=== PATIENT | female | born 1995 | race Caucasian/White ===

== ENCOUNTER 2016-10-30 04:51 | Emergency (ER) | payer MEDICAID ==
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
== END 2016-10-30 05:38 | disposition home or self-care (01) ==
LOC: VM.ED 04:51
DX: S01.81XA Laceration without foreign body of other part of head, initial encounter (principal); W22.8XXA Striking against or struck by other objects, initial encounter
CPT/HCPCS: 12013; 99283

== ENCOUNTER 2018-12-26 12:10 | Inpatient (IN) | payer MEDICAID ==
[2018-12-26] MEDS ORDERED: Sodium Chloride 0.9% 10 ML Syringe FLUSH PRN (12:20)
[2018-12-26] MEDS ORDERED: Ondansetron 4 MG/2 ML SDV IVPUSH ONE (12:22)
[2018-12-26] MEDS ORDERED: LORazepam 2 MG/ML SDV IVPUSH ONE ×2 (12:23→13:54)
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
[2018-12-26] MEDS: cloNIDine 0.1 MG Tab PO ONE ×2 (13:03→13:55)
[2018-12-26] MEDS: Lactated Ringers 1,000 ML IV ONE ×2 (13:03→15:14)
[2018-12-26 13:38] LABS: ANION GAP 21.7 mmol/L (10-20); CHLORIDE,CL 93 mmol/L (54-184); SODIUM,NA 141 mmol/L (69-191)
[2018-12-26 16:21] LABS: BARBITURATE SCREEN,URINE NEGATIVE (NEGATIVE); BENZODIAZEPINES SCREEN,URINE NEGATIVE (NEGATIVE); EDDP,URINE SCREEN NEGATIVE (NEGATIVE)
[2018-12-26 16:22] LABS: METHAMPHETAMINE SCREEN, URINE POSITIVE (NEGATIVE); TCA SCREEN,URINE NEGATIVE (NEGATIVE); THC SCREEN,URINE 50 NG/ML NEGATIVE (NEGATIVE)
[2018-12-26] MEDS: Sodium Chloride 0.9% 1,000 ML IV SCH ×2 (16:53→23:47)
--- NOTE | 2018-12-26 17:52 | CR ---
[id number] RAD/RAD Chest PA or AP 1V EXAM: SINGLE VIEW CHEST. INDICATION: ELEVATED LACTIC ACID COMPARISON: CORRELATION IS MADE WITH THE EXAM OF JANUARY 04, 2018 FINDINGS: The lungs are clear but hyperaerated The cardiomediastinal contour is stable IMPRESSION: QUESTION OF AIRWAY DISEASE Antony Villasenor MD 12/26/18 0461 Thank you for allowing us to participate in the care of your patient.
[2018-12-26] MEDS: LORazepam 1 MG Tab PO PRN (22:00)
[2018-12-27] MEDS: Sodium Chloride 0.9% 1,000 ML IV SCH ×2 (03:33→07:41)
[2018-12-27 08:13] LABS: CHLORIDE,CL 103 mmol/L (54-184); SODIUM,NA 141 mmol/L (69-191)
[2018-12-27 08:14] LABS: ANION GAP 11.3 mmol/L (10-20)
[2018-12-27] MEDS ORDERED: Potassium Chloride 10 MEQ Tab.ER PO ONE (08:52)
[2018-12-27] MEDS ORDERED: Ondansetron 4 MG Tab.DIS PO PRN (10:37)
[2018-12-27] MEDS ORDERED: Ondansetron 4 MG/2 ML SDV IVPUSH PRN (10:37)
--- NOTE | 2018-12-27 10:50 | PCM.PN ---
- General Info Date of Service: 12/27/18 Admission Dx/Problem (Free Text): 23 yo admitted yesterday with opioid withdrawl did get IV ativan and IV fluids as she was very dehydrated. C.O.W.S score was moderate on admit but today only mild. Last dose of oral ativan was around 10 pm she is sleeping comfortably now getting up just to urinate. Did open her eyes for the eye exam and mumbled no when asked about torri. Last use was about 6 days ago now. Had an admit a couple months ago for overdose. She is tolerating clear liquids hasn't vomited now since last night. WBC still elevated but no source of infection found. Functional Status: Reports: Pain Controlled - Review of Systems General: Reports: No Symptoms Pulmonary: Reports: No Symptoms Cardiovascular: Reports: No Symptoms Skin: Reports: No Symptoms Neurological: Denies: Confusion (answering questions appropriate per the nurse when she wants to) - Patient Data Vitals - Most Recent: Last Vital Signs Temp 98.5 F 12/27/18 10:00 Pulse 72 12/27/18 10:00 Resp 16 12/27/18 10:00 BP 103/52 L 12/27/18 10:00 Pulse Ox 93 L 12/27/18 10:00 Weight - Most Recent: 52.163 kg I&O - Last 24 Hours: Intake & Output 12/26/18 12/27/18 12/27/18 22:59 06:59 14:59 Intake Total 150 4009 400 Output Total 200 400 600 Balance -50 3609 -200 Lab Results Last 24 Hours: Laboratory Results - last 24 hr 12/26/18 12/26/18 12/26/18 Range/Units 13:02 13:02 13:02 WBC 15.2 H (4.0-10.0) x10^3/uL RBC 5.76 H (4.00-5.50) x10^6/uL Hgb 17.1 H (12.0-16.0) g/dL Hct 48.9 H (33.0-47.0) % MCV 84.9 (78.0-93.0) fL MCH 29.7 (26.0-32.0) pg MCHC 35.0 (32.0-36.0) g/dL RDW Coeff of Zachary 14.7 (10.0-15.0) % Plt Count 576 H (130-400) x10^3/uL Neut % (Auto) 76.6 (50.0-80.0) % Lymph % (Auto) 19.6 L (25.0-50.0) % [place] % (Auto) 3.6 (2.0-11.0) % Eos % (Auto) 0.1 (0.0-4.0) % Baso % (Auto) 0.1 L (0.2-1.2) % PT 10.4 (10.0-12.8) SEC INR 0.9 L (2.0-3.5) Sodium 141 (69-191) mmol/L Potassium 3.7 (1.5-9.9) mmol/L Chloride 93 L (54-184) mmol/L Carbon Dioxide 30 (21-32) mmol/L Anion Gap 21.7 H (10-20) mmol/L BUN 49 H (7-18) mg/dL Creatinine 2.4 H (0.55-1.02) mg/dL Est Cr Clr Drug Dosing TNP Estimated GFR (MDRD) 25 Glucose 164 H (74-106) mg/dL Lactic Acid (0.4-2.0) mmol/L Calcium 10.3 H (8.5-10.1) mg/dL Corrected Calcium 10.30 H (8.5-10.1) mg/dL Phosphorus 8.9 H (2.6-4.7) mg/dL Magnesium 2.7 H (1.8-2.4) mg/dL Total Bilirubin 0.6 (0.2-1.0) mg/dL AST 31 (15-37) U/L ALT 42 (14-59) U/L Alkaline Phosphatase 222 H (46-116) U/L Total Protein 11.0 H (6.4-8.2) g/dL Albumin 4.0 (3.4-5.0) g/dL Globulin 7.0 Albumin/Globulin Ratio 0.57 TSH, Ultra Sensitive 0.300 L (0.358-3.74) uIU/mL Urine Color (YELLOW) Urine Appearance (CLEAR) Urine pH (5.0-8.0) Ur Specific [place] Urine Protein (NEGATIVE) mg/dL Urine Glucose (UA) (NEGATIVE) mg/dL Urine Ketones (NEGATIVE) mg/dL Urine Occult Blood (NEGATIVE) Urine Nitrite (NEGATIVE) Urine Bilirubin (NEGATIVE) Urine Urobilinogen (0.2) EU/dL Ur Leukocyte Esterase (NEGATIVE) Urine RBC (NOT SEEN) /HPF Urine WBC (NOT SEEN) /HPF Ur Squamous Epith Cells (NEGATIVE) /HPF Amorphous Sediment Urine Bacteria (NEGATIVE) /HPF Hyaline Casts (NEGATIVE) /HPF Granular Casts (NEGATIVE) /HPF Urine Mucus (NEGATIVE) /LPF Urine HCG, Qual (NEGATIVE) Urine Opiates Screen (NEGATIVE) Ur Buprenorphine Scrn (NEGATIVE) Ur Oxycodone Screen (NEGATIVE) Ur EDDP (Meth Metab) (NEGATIVE) Urine Methadone Screen (NEGATIVE) Ur Barbiturates Screen (NEGATIVE) Ur Tricyclics Screen (NEGATIVE) Ur Phencyclidine Scrn (NEGATIVE) Ur Amphetamine Screen (NEGATIVE) U Methamphetamines Scrn (NEGATIVE) Urine MDMA Screen (NEGATIVE) U Benzodiazepines Scrn (NEGATIVE) U Cocaine Metab Screen (NEGATIVE) U Marijuana (THC) Screen (NEGATIVE) Ethyl Alcohol < 3 (0-3) mg/dL 12/26/18 12/26/18 12/26/18 Range/Units 13:02 16:10 16:10 WBC (4.0-10.0) x10^3/uL RBC (4.00-5.50) x10^6/uL Hgb (12.0-16.0) g/dL Hct (33.0-47.0) % MCV (78.0-93.0) fL MCH (26.0-32.0) pg MCHC (32.0-36.0) g/dL RDW Coeff of Zachary (10.0-15.0) % Plt Count (130-400) x10^3/uL Neut % (Auto) (50.0-80.0) % Lymph % (Auto) (25.0-50.0) % [place] % (Auto) (2.0-11.0) % Eos % (Auto) (0.0-4.0) % Baso % (Auto) (0.2-1.2) % PT (10.0-12.8) SEC INR (2.0-3.5) Sodium (69-191) mmol/L Potassium (1.5-9.9) mmol/L Chloride (54-184) mmol/L Carbon Dioxide (21-32) mmol/L Anion Gap (10-20) mmol/L BUN (7-18) mg/dL Creatinine (0.55-1.02) mg/dL Est Cr Clr Drug Dosing Estimated GFR (MDRD) Glucose (74-106) mg/dL Lactic Acid 4.6 H* (0.4-2.0) mmol/L Calcium (8.5-10.1) mg/dL Corrected Calcium (8.5-10.1) mg/dL Phosphorus (2.6-4.7) mg/dL Magnesium (1.8-2.4) mg/dL Total Bilirubin (0.2-1.0) mg/dL AST (15-37) U/L ALT (14-59) U/L Alkaline Phosphatase (46-116) U/L Total Protein (6.4-8.2) g/dL Albumin (3.4-5.0) g/dL Globulin Albumin/Globulin Ratio TSH, Ultra Sensitive (0.358-3.74) uIU/mL Urine Color Dark yellow H (YELLOW) Urine Appearance Turbid H (CLEAR) Urine pH 5.0 (5.0-8.0) Ur Specific [place] >=1.030 Urine Protein 30 H (NEGATIVE) mg/dL Urine Glucose (UA) Negative (NEGATIVE) mg/dL Urine Ketones Negative (NEGATIVE) mg/dL Urine Occult Blood Moderate H (NEGATIVE) Urine Nitrite Negative (NEGATIVE) Urine Bilirubin Small H (NEGATIVE) Urine Urobilinogen 0.2 (0.2) EU/dL Ur Leukocyte Esterase Negative (NEGATIVE) Urine RBC 5-10 H (NOT SEEN) /HPF Urine WBC 0-5 (NOT SEEN) /HPF Ur Squamous Epith Cells Few H (NEGATIVE) /HPF Amorphous Sediment Moderate Urine Bacteria Moderate H (NEGATIVE) /HPF Hyaline Casts Many H (NEGATIVE) /HPF Granular Casts Few H (NEGATIVE) /HPF Urine Mucus Moderate H (NEGATIVE) /LPF Urine HCG, Qual (NEGATIVE) Urine Opiates Screen Negative (NEGATIVE) Ur Buprenorphine Scrn Negative (NEGATIVE) Ur Oxycodone Screen Negative (NEGATIVE) Ur EDDP (Meth Metab) Negative (NEGATIVE) Urine Methadone Screen Negative (NEGATIVE) Ur Barbiturates Screen Negative (NEGATIVE) Ur Tricyclics Screen Negative (NEGATIVE) Ur Phencyclidine Scrn Negative (NEGATIVE) Ur Amphetamine Screen Positive H (NEGATIVE) U Methamphetamines Scrn Positive H (NEGATIVE) Urine MDMA Screen Negative (NEGATIVE) U Benzodiazepines Scrn Negative (NEGATIVE) U Cocaine Metab Screen Negative (NEGATIVE) U Marijuana (THC) Screen Negative (NEGATIVE) Ethyl Alcohol (0-3) mg/dL 12/26/18 12/27/18 12/27/18 Range/Units 16:10 07:45 07:45 WBC 16.1 H (4.0-10.0) x10^3/uL RBC 4.08 (4.00-5.50) x10^6/uL Hgb 12.0 D (12.0-16.0) g/dL Hct 35.7 (33.0-47.0) % MCV 87.5 (78.0-93.0) fL MCH 29.4 (26.0-32.0) pg MCHC 33.6 (32.0-36.0) g/dL RDW Coeff of Zachary 14.1 (10.0-15.0) % Plt Count 395 D (130-400) x10^3/uL Neut % (Auto) 63.0 (50.0-80.0) % Lymph % (Auto) 29.1 (25.0-50.0) % [place] % (Auto) 7.1 (2.0-11.0) % Eos % (Auto) 0.6 (0.0-4.0) % Baso % (Auto) 0.2 (0.2-1.2) % PT (10.0-12.8) SEC INR (2.0-3.5) Sodium 141 (69-191) mmol/L Potassium 3.3 L (1.5-9.9) mmol/L Chloride 103 (54-184) mmol/L Carbon Dioxide 30 (21-32) mmol/L Anion Gap 11.3 (10-20) mmol/L BUN 24 H D (7-18) mg/dL Creatinine 1.0 D (0.55-1.02) mg/dL Est Cr Clr Drug Dosing 72.67 Estimated GFR (MDRD) > 60 Glucose 89 (74-106) mg/dL Lactic Acid (0.4-2.0) mmol/L Calcium 8.0 L D (8.5-10.1) mg/dL Corrected Calcium 9.20 (8.5-10.1) mg/dL Phosphorus (2.6-4.7) mg/dL Magnesium (1.8-2.4) mg/dL Total Bilirubin 0.8 (0.2-1.0) mg/dL AST 56 H (15-37) U/L ALT 51 (14-59) U/L Alkaline Phosphatase 170 H (46-116) U/L Total Protein 6.6 (6.4-8.2) g/dL Albumin 2.5 L (3.4-5.0) g/dL Globulin 4.1 Albumin/Globulin Ratio 0.61 TSH, Ultra Sensitive (0.358-3.74) uIU/mL Urine Color (YELLOW) Urine Appearance (CLEAR) Urine pH (5.0-8.0) Ur Specific [place] Urine Protein (NEGATIVE) mg/dL Urine Glucose (UA) (NEGATIVE) mg/dL Urine Ketones (NEGATIVE) mg/dL Urine Occult Blood (NEGATIVE) Urine Nitrite (NEGATIVE) Urine Bilirubin (NEGATIVE) Urine Urobilinogen (0.2) EU/dL Ur Leukocyte Esterase (NEGATIVE) Urine RBC (NOT SEEN) /HPF Urine WBC (NOT SEEN) /HPF Ur Squamous Epith Cells (NEGATIVE) /HPF Amorphous Sediment Urine Bacteria (NEGATIVE) /HPF Hyaline Casts (NEGATIVE) /HPF Granular Casts (NEGATIVE) /HPF Urine Mucus (NEGATIVE) /LPF Urine HCG, Qual Negative (NEGATIVE) Urine Opiates Screen (NEGATIVE) Ur Buprenorphine Scrn (NEGATIVE) Ur Oxycodone Screen (NEGATIVE) Ur EDDP (Meth Metab) (NEGATIVE) Urine Methadone Screen (NEGATIVE) Ur Barbiturates Screen (NEGATIVE) Ur Tricyclics Screen (NEGATIVE) Ur Phencyclidine Scrn (NEGATIVE) Ur Amphetamine Screen (NEGATIVE) U Methamphetamines Scrn (NEGATIVE) Urine MDMA Screen (NEGATIVE) U Benzodiazepines Scrn (NEGATIVE) U Cocaine Metab Screen (NEGATIVE) U Marijuana (THC) Screen (NEGATIVE) Ethyl Alcohol (0-3) mg/dL 12/27/18 Range/Units 07:45 WBC (4.0-10.0) x10^3/uL RBC (4.00-5.50) x10^6/uL Hgb (12.0-16.0) g/dL Hct (33.0-47.0) % MCV (78.0-93.0) fL MCH (26.0-32.0) pg MCHC (32.0-36.0) g/dL RDW Coeff of Zachary (10.0-15.0) % Plt Count (130-400) x10^3/uL Neut % (Auto) (50.0-80.0) % Lymph % (Auto) (25.0-50.0) % [place] % (Auto) (2.0-11.0) % Eos % (Auto) (0.0-4.0) % Baso % (Auto) (0.2-1.2) % PT (10.0-12.8) SEC INR (2.0-3.5) Sodium (69-191) mmol/L Potassium (1.5-9.9) mmol/L Chloride (54-184) mmol/L Carbon Dioxide (21-32) mmol/L Anion Gap (10-20) mmol/L BUN (7-18) mg/dL Creatinine (0.55-1.02) mg/dL Est Cr Clr Drug Dosing Estimated GFR (MDRD) Glucose (74-106) mg/dL Lactic Acid 1.4 (0.4-2.0) mmol/L Calcium (8.5-10.1) mg/dL Corrected Calcium (8.5-10.1) mg/dL Phosphorus (2.6-4.7) mg/dL Magnesium (1.8-2.4) mg/dL Total Bilirubin (0.2-1.0) mg/dL AST (15-37) U/L ALT (14-59) U/L Alkaline Phosphatase (46-116) U/L Total Protein (6.4-8.2) g/dL Albumin (3.4-5.0) g/dL Globulin Albumin/Globulin Ratio TSH, Ultra Sensitive (0.358-3.74) uIU/mL Urine Color (YELLOW) Urine Appearance (CLEAR) Urine pH (5.0-8.0) Ur Specific [place] Urine Protein (NEGATIVE) mg/dL Urine Glucose (UA) (NEGATIVE) mg/dL Urine Ketones (NEGATIVE) mg/dL Urine Occult Blood (NEGATIVE) Urine Nitrite (NEGATIVE) Urine Bilirubin (NEGATIVE) Urine Urobilinogen (0.2) EU/dL Ur Leukocyte Esterase (NEGATIVE) Urine RBC (NOT SEEN) /HPF Urine WBC (NOT SEEN) /HPF Ur Squamous Epith Cells (NEGATIVE) /HPF Amorphous Sediment Urine Bacteria (NEGATIVE) /HPF Hyaline Casts (NEGATIVE) /HPF Granular Casts (NEGATIVE) /HPF Urine Mucus (NEGATIVE) /LPF Urine HCG, Qual (NEGATIVE) Urine Opiates Screen (NEGATIVE) Ur Buprenorphine Scrn (NEGATIVE) Ur Oxycodone Screen (NEGATIVE) Ur EDDP (Meth Metab) (NEGATIVE) Urine Methadone Screen (NEGATIVE) Ur Barbiturates Screen (NEGATIVE) Ur Tricyclics Screen (NEGATIVE) Ur Phencyclidine Scrn (NEGATIVE) Ur Amphetamine Screen (NEGATIVE) U Methamphetamines Scrn (NEGATIVE) Urine MDMA Screen (NEGATIVE) U Benzodiazepines Scrn (NEGATIVE) U Cocaine Metab Screen (NEGATIVE) U Marijuana (THC) Screen (NEGATIVE) Ethyl Alcohol (0-3) mg/dL Bashir Results Last 24 Hours: Microbiology 12/26/18 18:04 Anaerobic Blood Culture - Final Blood - Venous - Lab Draw 12/26/18 17:59 Anaerobic Blood Culture - Final Blood - Venous Med Orders - Current: Current Medications Diphenhydramine HCl (Benadryl) 25 mg PO QID PRN PRN Reason: Anxiety Lorazepam (Ativan) 1 mg PO Q3HR PRN PRN Reason: Agitation Last Admin: 12/26/18 22:00 Dose: 1 mg Ondansetron HCl (Zofran Odt) 4 mg PO Q4H PRN PRN Reason: Nausea/Vomiting Ondansetron HCl (Zofran) 4 mg IVPUSH Q8H PRN PRN Reason: Nausea Sodium Chloride (Saline Flush) 10 ml FLUSH ASDIRECTED PRN PRN Reason: Keep Vein Open Discontinued Medications Clonidine HCl (Catapres) 0.1 mg PO ONETIME ONE Stop: 12/26/18 12:25 Last Admin: 12/26/18 13:55 Dose: Not Given Lactated Ringer's (Ringers, Lactated) 1,000 mls @ 1,000 mls/hr IV ONETIME ONE Stop: 12/26/18 13:22 Last Admin: 12/26/18 15:14 Dose: 1,000 mls/hr Sodium Chloride (Normal Saline) 1,000 mls @ 250 mls/hr IV ASDIRECTED TANYA Last Admin: 12/27/18 07:41 Dose: 250 mls/hr Lorazepam (Ativan) 1 mg IVPUSH STAT ONE Stop: 12/26/18 12:24 Last Admin: 12/26/18 13:01 Dose: 1 mg Lorazepam (Ativan) 1 mg IVPUSH STAT ONE Stop: 12/26/18 13:55 Last Admin: 12/26/18 13:59 Dose: 1 mg Ondansetron HCl (Zofran) 4 mg IVPUSH ONETIME ONE Stop: 12/26/18 12:23 Last Admin: 12/26/18 13:03 Dose: 4 mg Potassium Chloride (Klor-Con 10) 20 meq PO ONETIME ONE Stop: 12/27/18 08:53 Last Admin: 12/27/18 09:53 Dose: 20 meq - Exam General: Obtunded HEENT: Pupils Equal (4 mm), Pupils Reactive Neck: Supple, Trachea Midline Lungs: Clear to Auscultation, Normal Respiratory Effort Cardiovascular: Regular Rate, Regular Rhythm GI/Abdominal Exam: Normal Bowel Sounds, Soft, Non-Tender Extremities: Normal Inspection, No Pedal Edema Skin: Warm, Dry Neurological: No New Focal Deficit Psy/Mental Status: Other (sleepy) - Problem List & Annotations (1) Opiate withdrawal SNOMED Code(s): 30330152 Code(s): F11.23 - OPIOID DEPENDENCE WITH WITHDRAWAL Status: Acute Current Visit: Yes - Problem List Review Problem List Initiated/Reviewed/Updated: Yes - My Orders Last 24 Hours: My Active Orders 12/27/18 10:36 diphenhydrAMINE [Benadryl] 25 mg PO QID PRN 12/27/18 10:37 Ondansetron [Zofran ODT] 4 mg PO Q4H PRN Ondansetron [Zofran] 4 mg IVPUSH Q8H PRN 12/28/18 05:15 CBC WITH AUTO DIFF [HEME] AM COMPREHENSIVE METABOLIC PN,CMP [CHEM] AM 12/28/18 07:00 MG [MAGNESIUM] [CHEM] Routine - Assessment Assessment:: 1. Renal failure due to dehydration resolved 2. Opioid withdrawl seems to have improved 3. Opioid addiction 4. Hypokalemia will replace orally 5. Leukocytosis no source of infection found, she is not on ABX Plan: Stop fluid Replace potassium Discuss with social studies teacher the possibility of going to direct treatment tomorrow Repeat labs in AM prn Benadryl if needed for anxiety nausea meds available Advance diet as tolerated - Plan Plan:: See above
--- NOTE | 2018-12-27 11:49 | CR ---
[id number] RAD/RAD Chest PA And Lateral EXAM: RAD Chest PA And Lateral CLINICAL DATA: ELEVATED WHITE BLOOD CELL COUNT ELEVATED LACTIC ACID COMPARISON: CORRELATION IS MADE WITH YESTERDAY'S EXAM FINDINGS: There is a minimal infiltrate at the left lung base developing. The lungs otherwise are clear but hyperaerated IMPRESSION: EARLY INFILTRATE LEFT LUNG BASE Antony Villasenor MD 12/27/18 1148 Thank you for allowing us to participate in the care of your patient.
[2018-12-27] MEDS: Albuterol/Ipratropium 3.0-0.5 MG/3 ML Neb Soln NEB PRN ×2 (12:45→23:18)
[2018-12-27] MEDS: cefTRIAXone 1 GM Vial IVPUSH SCH (12:45)
[2018-12-27] MEDS: Benzonatate 100 MG Cap PO PRN ×2 (12:48→23:19)
[2018-12-27] MEDS: diphenhydrAMINE 12.5 MG/5 ML Liquid 5 ML UD Cup PO PRN (23:18)
[2018-12-28] MEDS: LORazepam 1 MG Tab PO PRN (05:22)
[2018-12-28] MEDS: Benzonatate 100 MG Cap PO PRN (08:00)
[2018-12-28 08:02] LABS: ANION GAP 13.6 mmol/L (10-20); CHLORIDE,CL 101 mmol/L (54-184); SODIUM,NA 141 mmol/L (69-191)
[2018-12-28] MEDS: diphenhydrAMINE 12.5 MG/5 ML Liquid 5 ML UD Cup PO PRN (08:02)
[2018-12-28] MEDS: cefTRIAXone 1 GM Vial IVPUSH SCH (08:05)
[2018-12-28] MEDS ORDERED: Metoclopramide 10 MG/2 ML SDV IVPUSH PRN (08:23)
[2018-12-28] MEDS ORDERED: Ondansetron 4 MG/2 ML SDV IVPUSH PRN (08:23)
[2018-12-28] MEDS: Nicotine 14 MG/24 Hr Patch TRDERM SCH (09:28)
--- NOTE | 2018-12-28 13:26 | PN ---
Progress Note for ROME BAUTISTA Date: 12/28/2018 Room #: VM.215 SUBJECTIVE: This is hospital day #3 on a 23-year-old, initially admitted with observation for opioid withdrawal. The patient had a good day yesterday, but then unfortunately during the night started vomiting. She has been vomiting this morning, not really able to keep anything down. She had been off IV fluids. She otherwise was found to have pneumonia yesterday and started on IV Rocephin. She has been afebrile. She is not requiring any oxygen. She has been coughing quite a bit. She states the nebulizers help. She does not even recall seeing me yesterday when she came in. She had expressed some desire that she wished she was . She is no longer feeling like that. I suspect this is due to her severe withdrawal symptoms. She states she has never withdrawn this bad before. Last use was about a week ago. She has been to treatment previously and was on Suboxone, but did not have a vehicle and was not able to follow up appropriately to get her treatment in [place]. She has also been in [facility] for like 28 days before. OBJECTIVE: Vital Signs: Her weight is 48.5 kg, temperature 99.3, pulse 73, blood pressure 105/53, respiratory rate 12, and O2 of 94% on room air. Mother is at bedside. HEART: The patient's heart has regular rate and rhythm. S1, S2 without murmur. CHEST: Lung sounds are clear to auscultation bilaterally without crackles or wheezes. ABDOMEN: Nontender. EXTREMITIES: Warm and dry. No edema. MENTAL STATUS: She is alert. She is orientated x3. MEDICATIONS: Lorazepam p.o. at 5 a.m. ASSESSMENT: 1. Ongoing nausea, vomiting, likely due to opioid withdrawal. Patient denies any methadone use. Symptoms should be getting better soon. We will go ahead and restart her fluid. She has already got Zofran. We will order some p.r.n. Reglan as well. 2. Renal failure due to dehydration. This has resolved, but given her poor oral intake and current symptoms, I am going to restart IV fluids. 3. Opioid withdrawal. We will continue to monitor. 4. Opioid addiction. The patient is interested in pursuing treatment. Customer Associate will see her. 5. Pneumonia, presumably due to vomiting from her withdrawals. She was getting IV Rocephin now day #2. Infiltrate is in the left lung base. We will continue with the same. Repeat x-ray if needed. 6. Elevated liver enzymes. These are improving. 7. Polysubstance abuse. She also admits to using methamphetamines. 8. Leukocytosis due to pneumonia, improving. PLAN: At this point, the patient is upgraded to acute cares. We will restart IV fluids. We will get lab work tomorrow. We will continue IV Rocephin. Sputum culture was also ordered. We will have her on a diet as tolerated. She prefers Jell-O. We can go back to clear liquids also if needed. MKA: 12/28/2018 12:59:14 MODL: 12/28/2018 13:17:27 /[id number] [email or web address]
[2018-12-29] MEDS: Sodium Chloride 0.9% 500 ML IV SCH ×2 (00:20→04:50)
[2018-12-29] MEDS: LORazepam 1 MG Tab PO PRN (04:15)
[2018-12-29] MEDS: diphenhydrAMINE 12.5 MG/5 ML Liquid 5 ML UD Cup PO PRN (04:16)
[2018-12-29 07:25] LABS: CHLORIDE,CL 101 mmol/L (54-184); SODIUM,NA 139 mmol/L (69-191)
[2018-12-29 07:27] LABS: ANION GAP 13.6 mmol/L (10-20)
[2018-12-29] MEDS: cefTRIAXone 1 GM Vial IVPUSH SCH (07:35)
[2018-12-29] MEDS: Nicotine 14 MG/24 Hr Patch TRDERM SCH (07:35)
[2018-12-29] MEDS ORDERED: Cefuroxime 250 MG Tab PO SCH (09:30)
--- NOTE | 2018-12-29 14:19 | PCM.DCSUM1 ---
Discharge Summary - Hospital Course Free Text/Narrative:: Patient presented to the ER on 12/26 with being out of her IV heroin for 5 days with vomiting and not voiding. She was very dehydrated she was given ativan and IV fluids and admitted. Her withdrawl symptoms were moderate but mild by the next day however she had increased coughing so a chest x-ray was repeated showing pneumonia so she was started on IV rocephin on 12/27. She did get nebs which helped but hasn't used in 24 hours. She does smoke so was given the nicotine patch. She slept a lot. She got IV fluids those were stopped and she was on a clear liquid diet advancing to soft food and jello. She continued on observation but on the morning of 12/28 she was again vomiting despite zofran so IV reglan was ordered. She then vomited later in the day and fluids were restarted but overnight she had no further vomiting and was interested in going to treatment but really wanted to go home with her mother because she couldn't sleep here. Urine drug screen was positive for methamphetamines also. She has been intubated with overdose in the past at [facility]. Initially she did state she wanted to but that was when she was acutely withdrawing and no does not express any suicidal thoughts. Lung exam was improved with just mild wheezing she was afebrile and not requiring oxygen therefore discharge was arranged to the [facility] with Dr. Ignacio accepting. - Discharge Data Discharge Date: 12/29/18 Discharge Disposition: DC/Tfer to Psych Hosp/Unit [facility] Condition: Good - Referral to Home Health Primary Care Physician: Karma Reynolds, DO - Discharge Diagnosis/Problem(s) (1) Pneumonia SNOMED Code(s): 605737209 ICD Code: J18.9 - PNEUMONIA, UNSPECIFIED ORGANISM Status: Acute Current Visit: Yes Qualifiers: Pneumonia type: due to unspecified organism Laterality: left Lung location: lower lobe of lung Qualified Code(s): J18.1 - Lobar pneumonia, unspecified organism (2) Renal failure SNOMED Code(s): 76036440 ICD Code: N19 - UNSPECIFIED KIDNEY FAILURE Status: Resolved Priority: High Current Visit: Yes Qualifiers: Renal failure chronicity: acute Acute renal failure type: unspecified Qualified Code(s): N17.9 - Acute kidney failure, unspecified (3) Dehydration SNOMED Code(s): 39196018 ICD Code: E86.0 - DEHYDRATION Status: Resolved Priority: High Current Visit: Yes (4) Methamphetamine addiction SNOMED Code(s): 931135473, 904448704 ICD Code: F15.20 - OTHER STIMULANT DEPENDENCE, UNCOMPLICATED Status: Chronic Priority: High Current Visit: Yes (5) Opiate withdrawal SNOMED Code(s): 70322616 ICD Code: F11.23 - OPIOID DEPENDENCE WITH WITHDRAWAL Status: Acute Current Visit: Yes - Patient Summary/Data Consults: Consultations 12/26/18 15:21 Consult to Case Management/Documentation Billing Clerk [CONS] Routine - Patient Instructions Diet: Regular Diet as Tolerated Activity: As Tolerated Notify Provider of: Fever, Increased Pain, Drainage, Nausea and/or Vomiting - Discharge Plan Prescriptions/Med Rec: Cefuroxime [Ceftin] 250 mg PO BID #6 tablet Home Medications: Home Meds Cefuroxime [Ceftin] 250 mg PO BID #6 tablet 12/29/18 [Rx] LORazepam [Ativan] 1 mg PO Q3HR PRN tablet 12/29/18 [Rx] Nicotine [Habitrol] 14 mg TRDERM DAILY patch 12/29/18 [Rx] Ondansetron [Zofran ODT] 4 mg PO Q4H PRN tab.dis 12/29/18 [Rx] diphenhydrAMINE [Benadryl] 25 mg PO QID PRN cup 12/29/18 [Rx] Forms: ED Department Discharge Referrals: Harrison Watkins PA-C [Ordering Only Provider] - - Discharge Summary/Plan Comment DC Time >30 min.: Yes Discharge Summary/Plan Comment: To the [facility] for further chemical dependency treatment. Will need Ceftin 250 BID x 3 days All lab work looked ok PRN nausea meds and ativan to be further decided by the [facility] - General Info Date of Service: 12/29/18 Functional Status: Reports: Pain Controlled - Review of Systems General: Reports: No Symptoms Pulmonary: Reports: No Symptoms Cardiovascular: Reports: No Symptoms Gastrointestinal: Reports: No Symptoms (she is having BM's) Musculoskeletal: Reports: No Symptoms Psychiatric: Reports: Other (trouble sleeping ). Denies: Confusion - Patient Data Vitals - Most Recent: Last Vital Signs Temp 96.8 F 12/29/18 10:00 Pulse 88 12/29/18 10:00 Resp 18 12/29/18 10:00 BP 105/65 12/29/18 10:00 Pulse Ox 93 L 12/29/18 10:00 Weight - Most Recent: 48.534 kg I&O - Last 24 hours: Intake & Output 12/28/18 12/29/18 12/29/18 22:59 06:59 14:59 Intake Total 1300 Output Total 400 Balance 900 Lab Results - Last 24 hrs: Laboratory Results - last 24 hr 12/29/18 12/29/18 12/29/18 Range/Units 07:05 07:05 07:05 WBC 10.4 H (4.0-10.0) x10^3/uL RBC 4.49 (4.00-5.50) x10^6/uL Hgb 13.2 (12.0-16.0) g/dL Hct 39.2 (33.0-47.0) % MCV 87.3 (78.0-93.0) fL MCH 29.4 (26.0-32.0) pg MCHC 33.7 (32.0-36.0) g/dL RDW Coeff of Zachary 13.5 (10.0-15.0) % Plt Count 403 H (130-400) x10^3/uL Neut % (Auto) 59.2 (50.0-80.0) % Lymph % (Auto) 29.1 (25.0-50.0) % Beauregard % (Auto) 7.1 (2.0-11.0) % Eos % (Auto) 4.4 H (0.0-4.0) % Baso % (Auto) 0.2 (0.2-1.2) % Sodium 139 (69-191) mmol/L Potassium 3.6 (1.5-9.9) mmol/L Chloride 101 (54-184) mmol/L Carbon Dioxide 28 (21-32) mmol/L Anion Gap 13.6 (10-20) mmol/L BUN 12 (7-18) mg/dL Creatinine 0.7 (0.55-1.02) mg/dL Est Cr Clr Drug Dosing 96.59 mL/min Estimated GFR (MDRD) > 60 Glucose 101 (74-106) mg/dL Calcium 8.8 (8.5-10.1) mg/dL Magnesium 2.0 (1.8-2.4) mg/dL ALVIN Results - Last 24 hrs: Microbiology 12/28/18 08:25 Gram Stain - Final Sputum - Expectorated Sputum Culture - Preliminary NORMAL RESPIRATORY RENAN 1 DAY 12/26/18 18:04 Aerobic Blood Culture - Preliminary Blood - Venous - Lab Draw NO GROWTH AFTER 2 DAYS Anaerobic Blood Culture - Final 12/26/18 17:59 Aerobic Blood Culture - Preliminary Blood - Venous NO GROWTH AFTER 2 DAYS Anaerobic Blood Culture - Final Med Orders - Current: Current Medications Albuterol/Ipratropium (Duoneb 3.0-0.5 Mg/3 Ml) 3 ml NEB Q4HRRT PRN PRN Reason: Cough Last Admin: 12/27/18 23:18 Dose: 3 ml Benzonatate (Tessalon Perles) 100 mg PO TID PRN PRN Reason: Cough Last Admin: 12/28/18 08:00 Dose: 100 mg Cefuroxime Axetil (Ceftin) 250 mg PO BID [facility] Last Admin: 12/29/18 09:38 Dose: 250 mg Diphenhydramine HCl (Benadryl) 25 mg PO QID PRN PRN Reason: Anxiety Last Admin: 12/29/18 04:16 Dose: 25 mg Lorazepam (Ativan) 1 mg PO Q3HR PRN PRN Reason: Agitation Last Admin: 12/29/18 04:15 Dose: 1 mg Metoclopramide HCl (Reglan) 5 mg IVPUSH Q4H PRN PRN Reason: Vomiting Last Admin: 12/28/18 12:01 Dose: 5 mg Nicotine (Habitrol) 14 mg TRDERM DAILY [facility] Last Admin: 12/29/18 07:35 Dose: 14 mg Ondansetron HCl (Zofran Odt) 4 mg PO Q4H PRN PRN Reason: Nausea/Vomiting Ondansetron HCl (Zofran) 4 mg IVPUSH Q6H PRN PRN Reason: Nausea Sodium Chloride (Saline Flush) 10 ml FLUSH ASDIRECTED PRN PRN Reason: Keep Vein Open Discontinued Medications Ceftriaxone Sodium (Rocephin) 1 gm IVPUSH DAILY [facility] Last Admin: 12/29/18 07:35 Dose: 1 gm Clonidine HCl (Catapres) 0.1 mg PO ONETIME ONE Stop: 12/26/18 12:25 Last Admin: 12/26/18 13:55 Dose: Not Given Lactated Ringer's (Ringers, Lactated) 1,000 mls @ 1,000 mls/hr IV ONETIME ONE Stop: 12/26/18 13:22 Last Admin: 12/26/18 15:14 Dose: 1,000 mls/hr Sodium Chloride (Normal Saline) 1,000 mls @ 250 mls/hr IV ASDIRECTED [facility] Last Admin: 12/27/18 07:41 Dose: 250 mls/hr Sodium Chloride (Normal Saline) 500 mls @ 100 mls/hr IV ASDIRECTED [facility] Last Admin: 12/29/18 04:50 Dose: 100 mls/hr Lorazepam (Ativan) 1 mg IVPUSH STAT ONE Stop: 12/26/18 12:24 Last Admin: 12/26/18 13:01 Dose: 1 mg Lorazepam (Ativan) 1 mg IVPUSH STAT ONE Stop: 12/26/18 13:55 Last Admin: 12/26/18 13:59 Dose: 1 mg Ondansetron HCl (Zofran) 4 mg IVPUSH ONETIME ONE Stop: 12/26/18 12:23 Last Admin: 12/26/18 13:03 Dose: 4 mg Ondansetron HCl (Zofran) 4 mg IVPUSH Q8H PRN PRN Reason: Nausea Last Admin: 12/28/18 03:24 Dose: 4 mg Potassium Chloride (Klor-Con 10) 20 meq PO ONETIME ONE Stop: 12/27/18 08:53 Last Admin: 12/27/18 09:53 Dose: 20 meq - Exam General: Reports: Alert, Oriented HEENT: Reports: Pupils Equal, Pupils Reactive Neck: Reports: Supple Lungs: Reports: Clear to Auscultation, Normal Respiratory Effort, Wheezing Cardiovascular: Reports: Regular Rate, Regular Rhythm GI/Abdominal Exam: Normal Bowel Sounds, Soft, Non-Tender Extremities: Normal Inspection Skin: Reports: Warm, Dry, Intact Psy/Mental Status: Reports: Alert, Normal Affect, Normal Mood
== END 2018-12-29 15:25 | DRG 896 ==
LOC: VM.ED 12:10 → EEVIPCON 14:54 → VM.MS 14:54 → OBSVTOIN 12-28 08:23
PROVIDERS: ADMIT Internal Medicine; ATTEND Internal Medicine
DX: F11.23 Opioid dependence with withdrawal (principal); J18.9 Pneumonia, unspecified organism; N17.9 Acute kidney failure, unspecified; F15.20 Other stimulant dependence, uncomplicated; R11.2 Nausea with vomiting, unspecified; R45.1 Restlessness and agitation; E86.0 Dehydration; E87.6 Hypokalemia; R74.8 Abnormal levels of other serum enzymes; F19.10 Other psychoactive substance abuse, uncomplicated; J45.909 Unspecified asthma, uncomplicated
CPT/HCPCS: 36415 ×3; 71045; 71046; 80053 ×3; 80305; 80320; 81001; 81025; 83605 ×2; 83735 ×2; 84100; 84443; 85025 ×3; 85610; 87040 ×2; 94640 ×2; 96361; 96374; 96376; 99285; A9270 ×8; J0696 ×2; J2060 ×2; J2405 ×2; J7030 ×4; J7120 ×2; 80048; 87070; 87205; 96375; G0378; G0480; J2765; J7040; J7620-GY

== ENCOUNTER 2019-05-17 16:01 | Emergency (ER) | payer MEDICAID ==
[2019-05-17] MEDS ORDERED: Sodium Chloride 0.9% 10 ML Syringe FLUSH PRN (16:09)
[2019-05-17] MEDS ORDERED: Albuterol/Ipratropium 3.0-0.5 MG/3 ML Neb Soln NEB ONE (16:11)
[2019-05-17] MEDS ORDERED: methylPREDNISolone Sodium Succinate 125 MG/2 ML SDV IVPUSH ONE (16:18)
[2019-05-17] MEDS ORDERED: Lactated Ringers 1,000 ML IV ONE (16:23)
[2019-05-17] MEDS ORDERED: hydrOXYzine HCl 25 MG Tab PO ONE ×2 (16:30→18:45)
[2019-05-17] MEDS ORDERED: Ketorolac 15 MG/ML SDV IVPUSH ONE (16:32)
[2019-05-17] MEDS: cloNIDine 0.1 MG Tab PO ONE ×2 (16:35→16:48)
--- NOTE | 2019-05-17 16:38 | EDM.PDOC ---
ED HPI GENERAL MEDICAL PROBLEM - General Chief Complaint: General Stated Complaint: Heroin withdrawal Time Seen by Provider: 05/17/19 16:01 Source of Information: Reports: Patient History Limitations: Reports: Respiratory Distress, Uncooperative - History of Present Illness INITIAL COMMENTS - FREE TEXT/NARRATIVE: Patient comes into the emergency department with her family with complaints of a heroin withdrawal. Patient states her last use of heroin was yesterday. Patient has been using on a daily basis for an extended period of time. Patient is unwilling and uncooperative with her history. Patient says she also has been using codon tablets are mainly in between heroin use. Patient's that abuse is by injection. Patient states she is hepatitis C positive. Patient did go into rehabilitation and will to maintain sobriety for approximately 3 months however she was released from inpatient treatment at [facility] in February and moved back to [facility]. Mother states she ended up relapsing and has been using ever since. They ended up finding her today her to the emergency department for her parents concern for her wellbeing. States that she has not been eating, drinking, or taking care of herself. Patient states that she has difficulty breathing "I need oxygen". She states she has a productive cough and feels she can not catch her breath. She is uncooperative with history taking and often is abrasive and rude with staff. History: mother states patient started using Nurolon at the age of 16 until about 19 then was introduced to methamphetamine until the age of 22 when she switched to using heroin IV route. She has completed 4 inpatient treatments thus far in her lifetime with the last one completed at the [facility] in [place] at the End of February 2019. She currently does not have a place to live and has no money or job. Family does not feel safe with having the patient return home Pt denies being sad, loss of interest, suicidal, homicidal, hearing voices or seeing shadows. Onset: Gradual Location: Reports: Other Quality: Reports: Other Severity: Moderate Improves with: Reports: None Worsens with: Reports: None Associated Symptoms: Reports: Cough, cough w sputum - Related Data Allergies Allergy/AdvReac Type Severity Reaction Status Date / Time No Known Allergies Allergy Verified 12/26/18 14:15 Home Meds: Home Meds Cefuroxime [Ceftin] 250 mg PO BID #6 tablet 12/29/18 [Rx] LORazepam [Ativan] 1 mg PO Q3HR PRN tablet 12/29/18 [Rx] Nicotine [Habitrol] 14 mg TRDERM DAILY patch 12/29/18 [Rx] Ondansetron [Zofran ODT] 4 mg PO Q4H PRN tab.dis 12/29/18 [Rx] diphenhydrAMINE [Benadryl] 25 mg PO QID PRN cup 12/29/18 [Rx] hydrOXYzine HCL [Hydroxyzine HCl] 25 mg PO Q6H PRN #15 tablet 05/17/19 [Rx] Past Medical History - Past Health History Medical/Surgical History: Denies Medical/Surgical History Respiratory History: Reports: Asthma Psychiatric History: Reports: Addiction Social & Family History - Family History Family Medical History: Unobtainable - Caffeine Use Caffeine Use: Reports: Energy Drinks, Soda ED ROS GENERAL - Review of Systems Review Of Systems: Comprehensive ROS is negative, except as noted in HPI. Constitutional: Reports: Fatigue, Weight Loss HEENT: Reports: No Symptoms Respiratory: Reports: Shortness of Breath, Wheezing, Cough, Sputum Cardiovascular: Reports: No Symptoms Endocrine: Reports: No Symptoms GI/Abdominal: Reports: No Symptoms : Reports: No Symptoms Musculoskeletal: Reports: No Symptoms Skin: Reports: No Symptoms Neurological: Reports: No Symptoms Hematologic/Lymphatic: Reports: No Symptoms Immunologic: Reports: No Symptoms ED EXAM, GENERAL - Physical Exam Exam: See Below Exam Limited By: No Limitations General Appearance: Mild Distress Eye Exam: Bilateral Eye: EOMI, PERRL Head: Atraumatic, Normocephalic Neck: Normal Inspection, Supple, Non-Tender, Full Range of Motion Respiratory/Chest: Respiratory Distress, Decreased Breath Sounds, Wheezing, Accessory Muscle Use Cardiovascular: Normal Peripheral Pulses, Regular Rate, Rhythm, No Edema Back Exam: Normal Inspection, Full Range of Motion Extremities: Normal Inspection, Normal Range of Motion, Non-Tender, No Pedal Edema, Normal Capillary Refill, Other (fresh and old track kaplan noted on bilateral upper extremities ) Neurological: Alert, Oriented, Slow to Respond Psychiatric: Flat Affect Skin Exam: Cool, Pallor Course - Orders/Labs/Meds Orders: Active Orders 24 hr Category Date Time Status EKG Documentation Completion [RC] STAT Care 05/17/19 16:10 Ordered RT Aerosol Therapy [RC] ASDIRECTED Care 05/17/19 16:12 Ordered Chest 1V Frontal [CR] Stat Exams 05/17/19 16:11 Ordered CBC WITH AUTO DIFF [HEME] Stat Lab 05/17/19 16:09 Ordered COMPREHENSIVE METABOLIC PN,CMP [CHEM] Stat Lab 05/17/19 16:09 Ordered CPK [CREATINE KINASE,CK] [CHEM] Stat Lab 05/17/19 16:09 Ordered LACTIC ACID [CHEM] Stat Lab 05/17/19 16:09 Ordered PRO B-TYPE NATRIUR PEPT,BNPPRO [CHEM] Stat Lab 05/17/19 16:10 Ordered URINE DRUG SCREEN,POC [POC] Stat Lab 05/17/19 16:12 Ordered Lactated Ringers [Ringers, Lactated] 1,000 ml Med 05/17/19 16:23 Ordered IV ONETIME Sodium Chloride 0.9% [Saline Flush] Med 05/17/19 16:09 Ordered 10 ml FLUSH ASDIRECTED PRN Peripheral IV Insertion Adult [OM.PC] Stat Oth 05/17/19 16:09 Ordered Medication Orders Lactated Ringer's (Ringers, Lactated) 1,000 mls @ 1,000 mls/hr IV ONETIME ONE Stop: 05/17/19 17:22 Sodium Chloride (Saline Flush) 10 ml FLUSH ASDIRECTED PRN PRN Reason: Keep Vein Open Meds: Medications Generic Name Dose Route Start Last Admin Trade Name Freq PRN Reason Stop Dose Admin Lactated Ringer's 1,000 mls @ 1,000 mls/hr 05/17/19 16:23 Ringers, Lactated IV 05/17/19 17:22 ONETIME ONE Sodium Chloride 10 ml 05/17/19 16:09 Saline Flush FLUSH ASDIRECTED PRN Keep Vein Open Discontinued Medications Generic Name Dose Route Start Last Admin Trade Name Freq PRN Reason Stop Dose Admin Albuterol/Ipratropium 3 ml 05/17/19 16:11 Duoneb 3.0-0.5 Mg/3 Ml NEB 05/17/19 16:12 ONETIME ONE Clonidine HCl 0.1 mg 05/17/19 16:30 Catapres PO 05/17/19 16:31 ONETIME ONE Hydroxyzine HCl 50 mg 05/17/19 16:30 Atarax PO 05/17/19 16:31 ONETIME ONE Ketorolac Tromethamine 15 mg 05/17/19 16:32 Toradol IVPUSH 05/17/19 16:33 ONETIME ONE Methylprednisolone Sodium Succinate 125 mg 05/17/19 16:18 Solu-Medrol IVPUSH 05/17/19 16:19 ONETIME ONE Departure - Departure Time of Disposition: 18:40 Disposition: Home, Self-Care 01 Condition: Good Clinical Impression: Heroin use, Tremors of nervous system, Cough - Discharge Information *PRESCRIPTION DRUG MONITORING PROGRAM REVIEWED*: Not Applicable *COPY OF PRESCRIPTION DRUG MONITORING REPORT IN PATIENT SCOTT: Not Applicable Instructions: Cough, Adult, [id number], Opioid Use Disorder Forms: ED Department Discharge Additional Instructions: 1. rest 2. increase your water intake 3. Continue all at home medications 4. Activity and diet as tolerated 5. Can take over the counter Tylenol or ibuprophen for any pain or discomfort 6. Follow up with PCP if symptoms continue, return, or progress 7. Call with any questions or concerns 8. The [facility] service Center is open Friday through Friday for drug evaluation and treatment services. You can just show up for an evaluation in the am between 8:30-11:30 daily. They were given your information and are hopeful for your presence. They can evaluate and assist in Vivitrol injections if warranted. They can also offer outpatient services for drug rehabilitation or look at options of inpatient services within other facilities - My Orders Last 24 Hours: My Active Orders 05/17/19 16:09 CBC WITH AUTO DIFF [HEME] Stat COMPREHENSIVE METABOLIC PN,CMP [CHEM] Stat CPK [CREATINE KINASE,CK] [CHEM] Stat LACTIC ACID [CHEM] Stat Sodium Chloride 0.9% [Saline Flush] 10 ml FLUSH ASDIRECTED PRN Peripheral IV Insertion Adult [OM.PC] Stat 05/17/19 16:10 EKG Documentation Completion [RC] STAT PRO B-TYPE NATRIUR PEPT,BNPPRO [CHEM] Stat 05/17/19 16:11 Chest 1V Frontal [CR] Stat 05/17/19 16:12 RT Aerosol Therapy [RC] ASDIRECTED URINE DRUG SCREEN,POC [POC] Stat 05/17/19 16:23 Lactated Ringers [Ringers, Lactated] 1,000 ml IV ONETIME - Assessment/Plan Last 24 Hours: My Active Orders 05/17/19 16:09 CBC WITH AUTO DIFF [HEME] Stat COMPREHENSIVE METABOLIC PN,CMP [CHEM] Stat CPK [CREATINE KINASE,CK] [CHEM] Stat LACTIC ACID [CHEM] Stat Sodium Chloride 0.9% [Saline Flush] 10 ml FLUSH ASDIRECTED PRN Peripheral IV Insertion Adult [OM.PC] Stat 05/17/19 16:10 EKG Documentation Completion [RC] STAT PRO B-TYPE NATRIUR PEPT,BNPPRO [CHEM] Stat 05/17/19 16:11 Chest 1V Frontal [CR] Stat 05/17/19 16:12 RT Aerosol Therapy [RC] ASDIRECTED URINE DRUG SCREEN,POC [POC] Stat 05/17/19 16:23 Lactated Ringers [Ringers, Lactated] 1,000 ml IV ONETIME Assessment:: 1. Heroin withdrawal Plan: 1. Labs completed in the ER. Results reviewed with the patient 2. IV initiated in the emergency department 3. IV fluids provided- 1 L bolus 4. Pain medication given for severe pain and discomfort-Toradol 30mg IV 5. Clonidine 0.1mg PO given 6. Hydroxyzine 50mg PO given 7. Chest x-ray completed in ER. Results reviewed with the patient 8. Patient and nursing staff was updated regarding the plan of care 9. Duoneb ordered for wheezing and SOB 10. Solumedrol 125mg IV given for SOB and severe bronchial spasms 11. Education provided the patient regarding activity, diet, rest, over-the- counter medication modalities, and follow-up care was provided 12. Patient and family are agreeable to the above plan of care 13. All questions and concerns were addressed with the patient and family prior to discharge 14. Patient is very abrasive and rude and argumentative. Patient does not want any treatment and often uses the effort to speak towards staff and family. She does not want any help and wants to be discharged. She will be walking out of here. And no one will stop her she states. 15. Patient is not open or willing to the idea of drug treatment or detox this time frame. Did contact the [facility] and they are aware of the patient and that she has been successful on Vivitrol but could not afford the out of pocket payment. Patient is to present Friday or Friday am to the [facility] for a drug treatment evaluation 16. Patient was given a script for hydroxyzine 25mg PRN as needed for anxiety and encouraged to reach out for drug treatment rehabilitation 17. Patient was sent home with 1 tab for tonight of hydroxyzine 50mg for the pharmacies are closed.
[2019-05-17 17:07] LABS: CHLORIDE,CL 106 mmol/L (98-107); SODIUM,NA 142 mmol/L (136-145)
[2019-05-17 17:08] LABS: ANION GAP 14.7 mmol/L (10-20)
--- NOTE | 2019-05-17 17:14 | CR ---
[id number] RAD/RAD Chest PA or AP 1V EXAM: FRONTAL CHEST INDICATION: SHORTNESS OF BREATH. COMPARISON: December 27, 2018. DISCUSSION: The lungs appear hyperinflated, but clear. The heart is normal in size. No effusions. IMPRESSION: 1. Hyperinflation. Otherwise negative. Marty Zavala MD 05/17/19 1713 Thank you for allowing us to participate in the care of your patient.
== END 2019-05-17 18:54 | disposition home or self-care (01) ==
LOC: VM.ED 16:01
DX: F11.23 Opioid dependence with withdrawal (principal); R25.1 Tremor, unspecified; R05 Cough
CPT/HCPCS: 36415; 71045; 80053; 82550; 83605; 83880; 85025; 93005; 94640; 96361; 96374; 99284; A9270; J2930; J7120; J7620-GY

== ENCOUNTER 2019-11-08 13:40 | Emergency (ER) | payer MEDICAID, OTHER ==
[2019-11-08] MEDS ORDERED: Dexamethasone 4 MG/ML SDV IM ONE (13:42)
[2019-11-08] MEDS ORDERED: Albuterol/Ipratropium 3.0-0.5 MG/3 ML Neb Soln NEB ONE (13:42)
[2019-11-08] MEDS ORDERED: Sodium Chloride 0.9% 1,000 ML IV ONE (13:42)
[2019-11-08] MEDS ORDERED: LORazepam 2 MG/ML SDV IVPUSH ONE ×2 (13:45→14:11)
[2019-11-08] MEDS ORDERED: Flumazenil 0.1 MG/ML 5 ML MDV IVPUSH PRN ×2 (13:45→14:11)
[2019-11-08] MEDS ORDERED: Magnesium Sulfate (4.06 MEQ/ML) 1 GM/2 ML SDV ONE (14:07)
[2019-11-08] MEDS ORDERED: Magnesium Sulfate/Water 50 ML ONE (14:11)
[2019-11-08] MEDS ORDERED: Magnesium Sulfate/Water 2 GM in Premix Bag 1 BAG IV ONE (14:11)
[2019-11-08] MEDS ORDERED: LORazepam 2 MG/ML SDV ONE (14:13)
[2019-11-08] MEDS ORDERED: Rocuronium 50 MG/5 ML Vial ONE (14:23)
[2019-11-08] MEDS ORDERED: Succinylcholine 200 MG/10 ML MDV ONE (14:23)
--- NOTE | 2019-11-08 14:24 | EDM.PDOC ---
ED HPI GENERAL MEDICAL PROBLEM - General Time Seen by Provider: 11/08/19 13:40 Source of Information: Reports: EMS - History of Present Illness INITIAL COMMENTS - FREE TEXT/NARRATIVE: Jayla is a 24 y/o female who is brought to the ER with respiratory distress. She was picked up by the ambulance at her home near [place] and when EMS arrived they had to coax the patient to get into the ambulance for about 30 minutes. According to family members the patient was getting more dyspneic since the AM. She was given a Duoneb in the ambulance, but continued to require 15 liters of oxygen and her respiratory rate was in the 30s. On arrival to the ER she can barely answer questions and is very SOB and can barely say "Help me!" Last heroin was reported as yesterday. - Related Data Allergies Allergy/AdvReac Type Severity Reaction Status Date / Time No Known Allergies Allergy Verified 12/26/18 14:15 Home Meds: Home Meds Cefuroxime [Ceftin] 250 mg PO BID #6 tablet 12/29/18 [Rx] LORazepam [Ativan] 1 mg PO Q3HR PRN tablet 12/29/18 [Rx] Nicotine [Habitrol] 14 mg TRDERM DAILY patch 12/29/18 [Rx] Ondansetron [Zofran ODT] 4 mg PO Q4H PRN tab.dis 12/29/18 [Rx] diphenhydrAMINE [Benadryl] 25 mg PO QID PRN cup 12/29/18 [Rx] hydrOXYzine HCL [Hydroxyzine HCl] 25 mg PO Q6H PRN #15 tablet 05/17/19 [Rx] Past Medical History - Past Health History Medical/Surgical History: Denies Medical/Surgical History Respiratory History: Reports: Asthma Psychiatric History: Reports: Addiction Social & Family History - Family History Family Medical History: Unobtainable - Caffeine Use Caffeine Use: Reports: Energy Drinks, Soda Review of Systems - Review of Systems Review Of Systems: See Below Constitutional: Reports: Weakness Eyes: Reports: No Symptoms Ears: Reports: No Symptoms Nose: Reports: No Symptoms Mouth/Throat: Reports: No Symptoms Respiratory: Reports: Shortness of Breath, Wheezing, Cough Cardiovascular: Reports: No Symptoms GI/Abdominal: Reports: No Symptoms Genitourinary: Reports: No Symptoms Musculoskeletal: Reports: No Symptoms Skin: Reports: No Symptoms Neurological: Reports: No Symptoms Psychiatric: Reports: No Symptoms ED EXAM, GENERAL - Physical Exam Exam: See Below Exam Limited By: Respiratory Distress General Appearance: Alert, Anxious (Adult female in severe respiratory distress. Can only answer in 1-2 words.) Ears: Hearing Grossly Normal Nose: Normal Inspection Throat/Mouth: Normal Inspection Head: Atraumatic, Normocephalic Neck: Supple Respiratory/Chest: Respiratory Distress (Tight and decreased air movement througout.), Decreased Breath Sounds, Rhonchi Cardiovascular: No Murmur, Tachycardia GI/Abdominal: Normal Bowel Sounds, Soft (Female) Exam: Deferred Rectal (Female) Exam: Deferred Back Exam: Normal Inspection Neurological: Alert, Oriented Psychiatric: Anxious EKG INTERPRETATION EKG Date: 11/08/19 Time: 14:34 Rhythm: Other (Sinus Tachycardia) Rate (Beats/Min): 160 [place]: Normal P-Wave: Present QRS: Normal ST-T: Normal QT: Normal Course - Vital Signs Text/Narrative:: The patient was seen on arrival by the [facility]. Labs, CXR, anf EKG ordered. Nilson was given a Duoneb and Dexamethasone 10mg IM since she had no IV access. [address] [facility] contacted and Dr Vigil accepted the patient to the ER. [facility] called to intubate patient. Magnesium 2 gm IVPB given along with Lorazepam 1mg x 2 ordered. Patient still quite anxious. Requiring 15 liters of oxygen to maintain sats at 90%. See [facility] note for intubation meds and procedure. Ceftriaxone 1gm IVPB ordered to cover patient for pneumonia/sepsis. 1435 Blood gases reviewed: pH=7.16, PCO2=83, Rate=20, Peep=5, I:E=1:2. Gases/CXR repeated prior to departure with EMS. Vent settings adjusted prior to departure. Repeat gases and postintubation CXR done. Patient left the ER in good condition and much improved since intubated. E nd tidal CO2 was decreasing. - Orders/Labs/Meds Orders: Active Orders 24 hr Category Date Time Status EKG Documentation Completion [RC] STAT Care 11/08/19 13:41 Active RT Aerosol Therapy [RC] ASDIRECTED Care 11/08/19 13:42 Active Chest 1V Frontal [CR] Stat Exams 11/08/19 13:43 Taken CULTURE BLOOD [BC] Stat Lab 11/08/19 14:30 Results Magnesium Sulfate/Water [Magnesium Sulfate in Water Med 11/08/19 14:11 Active Premix] 2 gm Premix Bag 1 bag IV ONETIME flumazeniL [Romazicon] Med 11/08/19 13:45 Active 0.2 mg IVPUSH ASDIRECTED PRN flumazeniL [Romazicon] Med 11/08/19 14:11 Active 0.2 mg IVPUSH ASDIRECTED PRN Blood Culture x2 Reflex Set [OM.PC] Stat Oth 11/08/19 13:42 Ordered Medication Orders Flumazenil (Romazicon) 0.2 mg IVPUSH ASDIRECTED PRN PRN Reason: Respiratory Depression Flumazenil (Romazicon) 0.2 mg IVPUSH ASDIRECTED PRN PRN Reason: Respiratory Depression Magnesium Sulfate 2 gm/ Premix 50 mls @ 25 mls/hr IV ONETIME ONE Stop: 11/08/19 16:10 Labs: Laboratory Tests 11/08/19 11/08/19 11/08/19 Range/Units 14:08 14:30 14:30 WBC 14.7 H (4.0-10.0) x10^3/uL RBC 4.80 (4.00-5.50) x10^6/uL Hgb 13.4 D (12.0-16.0) g/dL Hct 41.0 (33.0-47.0) % MCV 85.4 D (78.0-93.0) fL MCH 27.9 (26.0-32.0) pg MCHC 32.7 (32.0-36.0) g/dL RDW Coeff of Zachary 16.7 H (10.0-15.0) % Plt Count 299 (130-400) x10^3/uL Neut % (Auto) 51.7 (50.0-80.0) % Lymph % (Auto) 29.2 (25.0-50.0) % [place] % (Auto) 8.2 (2.0-11.0) % Eos % (Auto) 10.6 H (0.0-4.0) % Baso % (Auto) 0.3 (0.2-1.2) % PT 9.4 L (9.5-12.3) SEC INR 0.9 L (2.0-3.5) APTT 24.1 L (25.6-32.8) SEC POC ABG pH (7.35-7.45) POC ABG pCO2 (35-45) mmHG POC ABG pO2 (80-105) mmHG POC ABG HCO3 (22-26) mmol/L POC ABG Total CO2 (23-27) mmol/L POC ABG O2 Sat (95-98) % POC ABG Base Excess (-2-3) mmol/L POC FiO2 Sodium (136-145) mmol/L Potassium (3.5-5.1) mmol/L Chloride (98-107) mmol/L Carbon Dioxide (21-32) mmol/L Anion Gap (10-20) mmol/L BUN (7-18) mg/dL Creatinine (0.55-1.02) mg/dL Est Cr Clr Drug Dosing Estimated GFR (MDRD) Glucose (74-106) mg/dL Lactic Acid (0.4-2.0) mmol/L Calcium (8.5-10.1) mg/dL Corrected Calcium (8.5-10.1) mg/dL Magnesium (1.8-2.4) mg/dL Total Bilirubin (0.2-1.0) mg/dL AST (15-37) U/L ALT (14-59) U/L Alkaline Phosphatase (46-116) U/L Troponin I (<=0.056) ng/mL Total Protein (6.4-8.2) g/dL Albumin (3.4-5.0) g/dL Globulin Albumin/Globulin Ratio POC Result Comm Urine Opiates Screen (NEGATIVE) Ur Buprenorphine Scrn (NEGATIVE) Ur Oxycodone Screen (NEGATIVE) Ur EDDP (Meth Metab) (NEGATIVE) Urine Methadone Screen (NEGATIVE) Ur Barbituates Screen (NEGATIVE) Ur Tricyclics Screen (NEGATIVE) Ur Phencyclidine Scrn (NEGATIVE) Ur Amphetamines Screen (NEGATIVE) U Methamphetamines Scrn (NEGATIVE) Urine MDMA Screen (NEGATIVE) U Benzodiazepines Scrn (NEGATIVE) Urine Cocaine Screen (NEGATIVE) U Marijuana (THC) Screen (NEGATIVE) Ethyl Alcohol (0-3) mg/dL COVID-19 (LIZBETH) Negative (NEGATIVE) 08/24/20 08/24/20 08/24/20 Range/Units 14:30 14:30 14:33 WBC (4.0-10.0) x10^3/uL RBC (4.00-5.50) x10^6/uL Hgb (12.0-16.0) g/dL Hct (33.0-47.0) % MCV (78.0-93.0) fL MCH (26.0-32.0) pg MCHC (32.0-36.0) g/dL RDW Coeff of Zachary (10.0-15.0) % Plt Count (130-400) x10^3/uL Neut % (Auto) (50.0-80.0) % Lymph % (Auto) (25.0-50.0) % [place] % (Auto) (2.0-11.0) % Eos % (Auto) (0.0-4.0) % Baso % (Auto) (0.2-1.2) % PT (9.5-12.3) SEC INR (2.0-3.5) APTT (25.6-32.8) SEC POC ABG pH 7.160 L* (7.35-7.45) POC ABG pCO2 83 H* (35-45) mmHG POC ABG pO2 205 H (80-105) mmHG POC ABG HCO3 30 H (22-26) mmol/L POC ABG Total CO2 32 H (23-27) mmol/L POC ABG O2 Sat 99 H (95-98) % POC ABG Base Excess 1 (-2-3) mmol/L POC FiO2 0.70 Sodium 141 (136-145) mmol/L Potassium 3.9 (3.5-5.1) mmol/L Chloride 104 (98-107) mmol/L Carbon Dioxide 31 (21-32) mmol/L Anion Gap 9.9 L (10-20) mmol/L BUN 13 (7-18) mg/dL Creatinine 0.8 (0.55-1.02) mg/dL Est Cr Clr Drug Dosing TNP Estimated GFR (MDRD) > 60 Glucose 139 H (74-106) mg/dL Lactic Acid 0.9 (0.4-2.0) mmol/L Calcium 8.7 (8.5-10.1) mg/dL Corrected Calcium 9.02 (8.5-10.1) mg/dL Magnesium 4.9 H (1.8-2.4) mg/dL Total Bilirubin 0.4 (0.2-1.0) mg/dL AST 27 (15-37) U/L ALT 36 (14-59) U/L Alkaline Phosphatase 128 H (46-116) U/L Troponin I < 0.017 (<=0.056) ng/mL Total Protein 7.7 (6.4-8.2) g/dL Albumin 3.6 (3.4-5.0) g/dL Globulin 4.1 Albumin/Globulin Ratio 0.88 POC Result Comm Called critical res Urine Opiates Screen (NEGATIVE) Ur Buprenorphine Scrn (NEGATIVE) Ur Oxycodone Screen (NEGATIVE) Ur EDDP (Meth Metab) (NEGATIVE) Urine Methadone Screen (NEGATIVE) Ur Barbituates Screen (NEGATIVE) Ur Tricyclics Screen (NEGATIVE) Ur Phencyclidine Scrn (NEGATIVE) Ur Amphetamines Screen (NEGATIVE) U Methamphetamines Scrn (NEGATIVE) Urine MDMA Screen (NEGATIVE) U Benzodiazepines Scrn (NEGATIVE) Urine Cocaine Screen (NEGATIVE) U Marijuana (THC) Screen (NEGATIVE) Ethyl Alcohol 3 (0-3) mg/dL COVID-19 (LIZBETH) (NEGATIVE) 11/08/19 11/08/19 Range/Units 14:35 15:01 WBC (4.0-10.0) x10^3/uL RBC (4.00-5.50) x10^6/uL Hgb (12.0-16.0) g/dL Hct (33.0-47.0) % MCV (78.0-93.0) fL MCH (26.0-32.0) pg MCHC (32.0-36.0) g/dL RDW Coeff of Zachary (10.0-15.0) % Plt Count (130-400) x10^3/uL Neut % (Auto) (50.0-80.0) % Lymph % (Auto) (25.0-50.0) % [place] % (Auto) (2.0-11.0) % Eos % (Auto) (0.0-4.0) % Baso % (Auto) (0.2-1.2) % PT (9.5-12.3) SEC INR (2.0-3.5) APTT (25.6-32.8) SEC POC ABG pH 7.248 L* (7.35-7.45) POC ABG pCO2 61 H* (35-45) mmHG POC ABG pO2 117 H (80-105) mmHG POC ABG HCO3 27 H (22-26) mmol/L POC ABG Total CO2 29 H (23-27) mmol/L POC ABG O2 Sat 98 (95-98) % POC ABG Base Excess -1 (-2-3) mmol/L POC FiO2 0.40 Sodium (136-145) mmol/L Potassium (3.5-5.1) mmol/L Chloride (98-107) mmol/L Carbon Dioxide (21-32) mmol/L Anion Gap (10-20) mmol/L BUN (7-18) mg/dL Creatinine (0.55-1.02) mg/dL Est Cr Clr Drug Dosing Estimated GFR (MDRD) Glucose (74-106) mg/dL Lactic Acid (0.4-2.0) mmol/L Calcium (8.5-10.1) mg/dL Corrected Calcium (8.5-10.1) mg/dL Magnesium (1.8-2.4) mg/dL Total Bilirubin (0.2-1.0) mg/dL AST (15-37) U/L ALT (14-59) U/L Alkaline Phosphatase (46-116) U/L Troponin I (<=0.056) ng/mL Total Protein (6.4-8.2) g/dL Albumin (3.4-5.0) g/dL Globulin Albumin/Globulin Ratio POC Result Comm Called results Urine Opiates Screen Positive H (NEGATIVE) Ur Buprenorphine Scrn Negative (NEGATIVE) Ur Oxycodone Screen Negative (NEGATIVE) Ur EDDP (Meth Metab) Negative (NEGATIVE) Urine Methadone Screen Negative (NEGATIVE) Ur Barbituates Screen Negative (NEGATIVE) Ur Tricyclics Screen Negative (NEGATIVE) Ur Phencyclidine Scrn Negative (NEGATIVE) Ur Amphetamines Screen Positive H (NEGATIVE) U Methamphetamines Scrn Positive H (NEGATIVE) Urine MDMA Screen Negative (NEGATIVE) U Benzodiazepines Scrn Negative (NEGATIVE) Urine Cocaine Screen Negative (NEGATIVE) U Marijuana (THC) Screen Positive H (NEGATIVE) Ethyl Alcohol (0-3) mg/dL COVID-19 (LIZBETH) (NEGATIVE) Meds: Medications Generic Name Dose Route Start Last Admin Trade Name Freq PRN Reason Stop Dose Admin Flumazenil 0.2 mg 11/08/19 13:45 Romazicon IVPUSH ASDIRECTED PRN Respiratory Depression Flumazenil 0.2 mg 11/08/19 14:11 Romazicon IVPUSH ASDIRECTED PRN Respiratory Depression Magnesium Sulfate 2 gm/ Premix 50 mls @ 25 mls/hr 11/08/19 14:11 IV 11/08/19 16:10 ONETIME ONE Discontinued Medications Generic Name Dose Route Start Last Admin Trade Name Freq PRN Reason Stop Dose Admin Albuterol/Ipratropium 3 ml 11/08/19 13:42 Duoneb 3.0-0.5 Mg/3 Ml NEB 11/08/19 13:43 ONETIME ONE Ceftriaxone Sodium 1 gm 11/08/19 14:33 Rocephin IVPUSH 11/08/19 14:34 STAT ONE Ceftriaxone Sodium Confirm 11/08/19 14:42 Rocephin Administered 11/08/19 14:43 Dose 1 gm .ROUTE .STK-MED ONE Dexamethasone 10 mg 11/08/19 13:42 Dexamethasone IM 11/08/19 13:43 ONETIME ONE Fentanyl Confirm 11/08/19 14:59 Sublimaze Administered 11/08/19 15:00 Dose 100 mcg .ROUTE .STK-MED ONE Sodium Chloride 1,000 mls @ 999 mls/hr 11/08/19 13:42 Normal Saline IV 11/08/19 14:42 ONETIME ONE Magnesium Sulfate Confirm 11/08/19 14:11 Magnesium Sulfate In Water Premix Administered 11/08/19 14:12 Dose 50 mls @ as directed .ROUTE .STK-MED ONE Lorazepam 1 mg 11/08/19 13:45 Ativan IVPUSH 11/08/19 13:46 STAT ONE Lorazepam Confirm 11/08/19 14:13 Ativan Administered 11/08/19 14:14 Dose 2 mg .ROUTE .STK-MED ONE Lorazepam 1 mg 11/08/19 14:11 Ativan IVPUSH 11/08/19 14:12 STAT ONE Magnesium Sulfate Confirm 11/08/19 14:07 Magnesium Sulfate 50% Administered 11/08/19 14:08 Dose 1 gm .ROUTE .STK-MED ONE Midazolam HCl Confirm 11/08/19 15:00 Versed 1 Mg/Ml Administered 11/08/19 15:01 Dose 6 mg .ROUTE .STK-MED ONE Rocuronium [place] Confirm 11/08/19 14:23 Zemuron Administered 11/08/19 14:24 Dose 50 mg .ROUTE .STK-MED ONE Succinylcholine Chloride Confirm 11/08/19 14:23 Quelicin Administered 11/08/19 14:24 Dose 200 mg .ROUTE .STK-MED ONE - Radiology Interpretation Free Text/Narrative:: CXR=postintubation with ET tube in place, no pneumonia noted. Departure - Departure Time of Disposition: 13:51 Disposition: DC/Tfer to [facility] 02 Condition: Fair Clinical Impression: Respiratory distress, acute, Asthma, Heroin use, Methamphetamine abuse - Discharge Information Referrals: Karma Reynolds DO [Primary Care Provider] - Forms: Interfacility Transfer EMTALA Additional Instructions: -Transfer to [facility] Er to Dr Vigil via [facility] - My Orders Last 24 Hours: My Active Orders 11/08/19 13:41 EKG Documentation Completion [RC] STAT 11/08/19 13:42 RT Aerosol Therapy [RC] ASDIRECTED Blood Culture x2 Reflex Set [OM.PC] Stat 11/08/19 13:43 Chest 1V Frontal [CR] Stat 11/08/19 13:45 flumazeniL [Romazicon] 0.2 mg IVPUSH ASDIRECTED PRN 11/08/19 14:11 Magnesium Sulfate/Water [Magnesium Sulfate in Water Premix] 2 gm Premix Bag 1 bag IV ONETIME flumazeniL [Romazicon] 0.2 mg IVPUSH ASDIRECTED PRN 11/08/19 14:30 CULTURE BLOOD [BC] Stat - Assessment/Plan Last 24 Hours: My Active Orders 11/08/19 13:41 EKG Documentation Completion [RC] STAT 11/08/19 13:42 RT Aerosol Therapy [RC] ASDIRECTED Blood Culture x2 Reflex Set [OM.PC] Stat 11/08/19 13:43 Chest 1V Frontal [CR] Stat 11/08/19 13:45 flumazeniL [Romazicon] 0.2 mg IVPUSH ASDIRECTED PRN 11/08/19 14:11 Magnesium Sulfate/Water [Magnesium Sulfate in Water Premix] 2 gm Premix Bag 1 bag IV ONETIME flumazeniL [Romazicon] 0.2 mg IVPUSH ASDIRECTED PRN 11/08/19 14:30 CULTURE BLOOD [BC] Stat
[2019-11-08] MEDS ORDERED: cefTRIAXone 1 GM Vial IVPUSH ONE (14:33)
[2019-11-08] MEDS ORDERED: cefTRIAXone 1 GM Vial ONE (14:42)
[2019-11-08 14:44] LABS: BUPRENORPHINE,URINE NEGATIVE (NEGATIVE); METHYLENEDIOXYMETHAMP,UR NEGATIVE (NEGATIVE); PHENCYCLIDINE,URINE NEGATIVE (NEGATIVE)
[2019-11-08 14:45] LABS: MARIJUANA,URINE POSITIVE (NEGATIVE)
[2019-11-08 14:53] LABS: PTT,PARTIAL THROMBOPLSTIN TIME 24.1 SEC (25.6-32.8)
[2019-11-08 14:59] LABS: CHLORIDE,CL 104 mmol/L (98-107); SODIUM,NA 141 mmol/L (136-145)
[2019-11-08] MEDS ORDERED: fentaNYL 100 MCG/2 ML SDV ONE (14:59)
[2019-11-08] MEDS ORDERED: Midazolam 1 MG/ML 2 ML SDV ONE (15:00)
[2019-11-08 15:01] LABS: ANION GAP 9.9 mmol/L (10-20)
--- NOTE | 2019-11-08 15:19 | CR ---
[id number] RAD/RAD Chest PA or AP 1V EXAM: RAD Chest PA or AP 1V INDICATION: SHORTNESS OF BREATH. ASTHMA EXACERBATION. COMPARISON: May 17, 2019. DISCUSSION: Endotracheal tube with tip approximately 5 cm above the lauri. NG tube in place. Pulmonary hyperinflation. No infiltrate. No pneumothorax or pleural effusion. The heart is normal in size. IMPRESSION: Pulmonary hyperinflation. Tj Cespedes DO 11/08/19 1518 Thank you for allowing us to participate in the care of your patient.
--- NOTE | 2019-11-08 15:22 | PCM.PRNOTE ---
- Free Text/Narrative Note: Intubation note: Was called to the emergency room for a patient who severe respiratory distress with known history of asthma and difficulty exchanging air. The patient is found to have spontaneous respirations. 97-99% on nonrebreather mask. Patient was patient was appropriate to verbal stimuli. I was requested to intubate this patient due to the patient's work of breathing and severe wheezing. Ambu and intubation equipment was assembled. Glidescope was set up and checked. Patient was given some Ativan early on to help her calm down which did slow her respiratory rate and decrease her tachycardia and had the patient be slightly more calm. She was given 2 mg midazolam in 100 mcg of fentanyl IV in preparation for intubation. When the equipment was assembled the patient was given succinylcholine 100 mg. Visualization using a glide scope was obtained. A 7.0 mm ID endotracheal tube was advanced using a rigid stylet. Oropharynx had some stringy saliva which was easily moved out of the way for visualization. ET tube passed through the glottic opening. The tube was held in place and the stylet was removed. The tube was advanced to 22 cm at the teeth. Balloon was inflated with 10 mL of air. End tidal CO2 was positive at 57 mmHg initially but did go as high as 75 mmHg. Breath sounds or positive over of all lung brown and negative over the epigastric area. Patient was placed on the ventilator with settings of 70% SPO2 rate of 20, tidal volume 400 mL, MAIKOL ratio was 1:1.5, and PEEP was +5. Tube was secured with a bite block securing device. Patient began to show some movement in was given more muscle relaxant. Rocuronium 50 mg IV was given. Chest x-ray was obtained with the appearing to be in good position. Initial blood gas readings were PCO2 of 83 and SaO2 of 210. Ventilator settings were changed. Tidal volume was decreased to 360, rate was left at 20, MAIKOL ratio was changed to 1:2, SPO2 was decreased to 40% and the HME filter was placed in a different position. End-tidal CO2 monitored was at approximately 40 mmHg. Another set of blood gases were obtained. These showed pH 7.24, PCO2 61.3, SPO2 117, bicarb 29.8. Patient was prepped for transport report given to nursing staff.
== END 2019-11-08 14:58 | disposition short-term general hospital (02) ==
LOC: VM.ED 13:40
DX: J45.909 Unspecified asthma, uncomplicated (principal); R06.03 Acute respiratory distress; F11.90 Opioid use, unspecified, uncomplicated; F15.10 Other stimulant abuse, uncomplicated; R00.0 Tachycardia, unspecified; Z20.828 Contact with and (suspected) exposure to other viral communicable diseases; Z79.899 Other long term (current) drug therapy
CPT/HCPCS: 31500; 36415; 36600; 71045; 80053; 80305-QW; 80307; 82803; 83605; 83735; 84484; 85025; 85610; 85730; 87040; 93005; 93010; 94002; 94640; 96365; 96372; 96375; 99284; 99285-25; J0330; J0696; J1100; J2060; J3475; J7030; J7620-GY; U0002

== ENCOUNTER 2020-01-05 17:50 | Emergency (ER) | payer MEDICAID ==
[2020-01-05] MEDS ORDERED: Sodium Chloride 0.9% 10 ML Syringe FLUSH PRN (18:06)
--- NOTE | 2020-01-05 18:07 | EDM.PDOC ---
ED HPI GENERAL MEDICAL PROBLEM - General Chief Complaint: Respiratory Problem Stated Complaint: BREATHING ISSUE Time Seen by Provider: 01/05/20 18:07 Source of Information: Reports: Patient History Limitations: Reports: Respiratory Distress - History of Present Illness INITIAL COMMENTS - FREE TEXT/NARRATIVE: Patient comes emergency department today from home with concerns of a severe asthma exacerbation. This patient has long-term difficult asthma she has been out of her haled corticosteroid for about a month. She has a significant history of 2 intubations in the past due to status asthmaticus. 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 For the past couple of days she has had increased shortness of breath wheezing and difficulty breathing. She denies any fever or chills. She complains of some tightness in her chest. She has a dry hacking nonproductive cough. She has used her albuterol inhaler multiple times without improvement or resolution. She has no abdominal pain nausea or vomiting. No hematuria dysuria or urinary frequency. No black or tarry stools. She has not had any Covid exposure. She has no loss of taste or smell. No diarrhea. - Related Data Allergies Allergy/AdvReac Type Severity Reaction Status Date / Time No Known Allergies Allergy Verified 01/05/20 18:05 Home Meds: Home Meds Cefuroxime [Ceftin] 250 mg PO BID #6 tablet 12/29/18 [Rx] LORazepam [Ativan] 1 mg PO Q3HR PRN tablet 12/29/18 [Rx] Nicotine [Habitrol] 14 mg TRDERM DAILY patch 12/29/18 [Rx] Ondansetron [Zofran ODT] 4 mg PO Q4H PRN tab.dis 12/29/18 [Rx] diphenhydrAMINE [Benadryl] 25 mg PO QID PRN cup 12/29/18 [Rx] hydrOXYzine HCL [Hydroxyzine HCl] 25 mg PO Q6H PRN #15 tablet 05/17/19 [Rx] Past Medical History - Past Health History Medical/Surgical History: Denies Medical/Surgical History Respiratory History: Reports: Asthma Psychiatric History: Reports: Addiction Social & Family History - Family History Family Medical History: Unobtainable - Caffeine Use Caffeine Use: Reports: Energy Drinks, Soda ED ROS GENERAL - Review of Systems Review Of Systems: Comprehensive ROS is negative, except as noted in HPI. ED EXAM, GENERAL - Physical Exam Exam: See Below Free Text/Narrative:: Patient is sitting in the tripod position with breath stacking. She is quite dyspneic. She is only able to speak in 2-3 word sentences. She is alert appropriate maintaining her airway per herself. Exam Limited By: Respiratory Distress General Appearance: Alert, WD/WN, Moderate Distress Eye Exam: Bilateral Eye: EOMI, PERRL Ears: Normal External Exam Nose: Normal Inspection Throat/Mouth: Normal Inspection (Mucosa is quite dry.), Normal Lips (Dry and cracked) Head: Atraumatic, Normocephalic Neck: Normal Inspection, Supple, Non-Tender Respiratory/Chest: Respiratory Distress (He has breath stacking. She is only able to speak in 2-3 word sentences. She has quite loud audible inspiratory and expiratory wheezing with some mild stridor.), Decreased Breath Sounds (Profound decreased lung sounds bilaterally.), Accessory Muscle Use (She has intercostal and subclavicular retractions. Nasal flaring.) Cardiovascular: Normal Peripheral Pulses, Regular Rate, Rhythm, No Murmur, Tachycardia Peripheral Pulses: 2+: Radial (L), Radial (R), Posterior Tibial (L), Posterior Tibial (R), Dorsalis Pedis (L), Dorsalis Pedis (R) GI/Abdominal: Normal Bowel Sounds, Soft, Non-Tender (Female) Exam: Deferred Rectal (Female) Exam: Deferred Back Exam: Normal Inspection, Full Range of Motion Extremities: Normal Range of Motion. No: Normal Inspection (She has extensive what appears to be IV drug use AKA track kaplan up and down bilateral arms. Otherwise her extremities are unremarkable.) Neurological: Alert, Oriented, Normal Cognition, No Motor/Sensory Deficits Psychiatric: Normal Affect, Normal Mood, Anxious Course - Vital Signs Last Recorded V/S: Last Vital Signs Temp 97.4 F 01/05/20 17:50 Pulse 120 H 01/05/20 19:57 Resp 24 H 01/05/20 19:57 BP 128/82 01/05/20 19:30 Pulse Ox 100 01/05/20 19:57 - Orders/Labs/Meds Orders: Active Orders 24 hr Category Date Time Status Peripheral IV Insertion Adult [OM.PC] Stat Oth 01/05/20 18:06 Ordered Labs: Laboratory Tests 01/05/20 01/05/20 Range/Units 17:12 20:15 POC ABG pH 7.40 (7.35-7.45) pH POC ABG pCO2 48 (35-48) mmHg POC ABG pO2 93 (83-108) mmHg POC ABG HCO3 29.6 H (21-28) mmol/L POC ABG Total CO2 TNP POC ABG O2 Sat 97.0 % POC ABG Base Excess 5 H (-2-3) mmol/L POC FiO2 0.44 SARS CoV-2 RNA Rapid LIZBETH Negative (NEGATIVE) Meds: Medications Discontinued Medications Generic Name Dose Route Start Last Admin Trade Name Brayanq PRN Reason Stop Dose Admin Albuterol 10 mg 01/05/20 19:50 01/05/20 19:57 Proventil Neb Soln NEB 01/05/20 19:51 10 mg ONETIME ONE Administration Albuterol/Ipratropium 3 ml 01/05/20 18:06 01/05/20 18:11 Duoneb 3.0-0.5 Mg/3 Ml NEB 01/05/20 18:07 3 ml ONETIME ONE Administration Budesonide 1 mg 01/05/20 18:06 01/05/20 18:19 Pulmicort NEB 01/05/20 18:07 1 mg ONETIME ONE Administration Levalbuterol HCl 1.25 mg 01/05/20 18:21 Xopenex NEB 01/05/20 18:22 ONETIME ONE Levalbuterol HCl 2.5 mg 01/05/20 18:32 01/05/20 18:41 Xopenex NEB 01/05/20 18:33 2.5 mg ONETIME ONE Administration Magnesium Sulfate 2 gm 01/05/20 18:20 01/05/20 18:49 Magnesium Sulfate In Water Premix IV 01/05/20 18:21 2 gm NOW STA Administration Methylprednisolone Sodium Succinate 125 mg 01/05/20 18:06 01/05/20 18:40 Solu-Medrol IVPUSH 01/05/20 18:07 125 mg ONETIME ONE Administration Methylprednisolone Sodium Succinate 125 mg 01/05/20 18:32 01/05/20 18:45 Solu-Medrol IVPUSH 01/05/20 18:33 125 mg ONETIME ONE Administration Montelukast Sodium 10 mg 01/05/20 18:50 01/05/20 19:07 Singulair PO 01/05/20 18:51 10 mg ONETIME ONE Administration Sodium Chloride 10 ml 01/05/20 18:06 Saline Flush FLUSH ASDIRECTED PRN Keep Vein Open - Re-Assessments/Exams Free Text/Narrative Re-Assessment/Exam: 01/05/20 This patient is pretty good respiratory distress but she is alert and appropriate. Is a very difficult IV start due to her history of IV drug use and her track kaplan. Eventually we were able to get a 24-gauge IV in her left foot. Initially started with a DuoNeb as well as a budesonide 1 mg nebulizer. Solu-Medrol 250 mg IV push. Magnesium sulfate 2 g over 20 minutes. Her chest x-ray shows no acute infiltrate consolidation effusion hemopneumothorax. She does have quite a bit of significant air trapping when reviewed extemporaneously by myself. Radiology to review as well. She did have some improvement with the above therapy. She was able to actually sit back and relax in the bed. She still had audible wheezing but her work of breathing had improved by about 50%. She was still alert appropriate and maintaining her airway. I kept the patient on a continuous nebulizer with albuterol. 100 in the emergency department over the next couple of hours she did have quite a bit of improvement but she still had decreased lung sounds and some inspiratory and expiratory wheezing. With her extensive history of severe asthma attack including her intubations and her IV drug use and her hypoxia that she is still requiring up to 4 L of oxygen to keep her oxygen saturation above 92%. I feel that she needs close inpatient monitoring. I called and spoke with Dr. Lanza at [facility] in [place]. HPI ER COURSE findings and concerns were relayed to him verbally over the phone. His questions were answered and he accepted the patient in transfer at this time. I discussed the plan of care with the patient and her mother they are comfortable with this plan and her questions answered. Departure - Departure Time of Disposition: 19:46 Disposition: DC/Tfer to [facility] 02 Clinical Impression: Hypoxemia Asthma with status asthmaticus Qualifiers: Asthma severity: severe Asthma persistence: unspecified Qualified Code(s): J45.902 - Unspecified asthma with status asthmaticus - Discharge Information Referrals: PCP,Not In Area [Primary Care Provider] - Forms: ED Department Discharge, Interfacility Transfer EMTALA Sepsis Event Note (ED) - Evaluation Sepsis Screening Result: No Definite Risk - My Orders Last 24 Hours: My Active Orders 01/05/20 18:06 Peripheral IV Insertion Adult [OM.PC] Stat - Assessment/Plan Last 24 Hours: My Active Orders 01/05/20 18:06 Peripheral IV Insertion Adult [OM.PC] Stat
[2020-01-05] MEDS: Albuterol/Ipratropium 3.0-0.5 MG/3 ML Neb Soln NEB ONE (18:11)
[2020-01-05] MEDS: Budesonide 0.5 MG/2 ML Neb Susp NEB ONE (18:19)
[2020-01-05] MEDS ORDERED: Levalbuterol HCl 1.25 MG/0.5 ML Neb NEB ONE (18:21)
[2020-01-05] MEDS: methylPREDNISolone Sodium Succinate 125 MG/2 ML SDV IVPUSH ONE ×2 (18:40→18:45)
[2020-01-05] MEDS: Levalbuterol HCl 1.25 MG/0.5 ML Neb NEB ONE (18:41)
[2020-01-05] MEDS: Magnesium Sulfate/Water 2 GM/50 ML Premix Bag IV STA (18:49)
[2020-01-05] MEDS: Montelukast 10 MG Tab PO ONE (19:07)
--- NOTE | 2020-01-05 19:17 | CR ---
[id number] RAD/RAD Chest PA or AP 1V EXAM: SINGLE VIEW CHEST. INDICATION: HYPOXIA ASTHMA COMPARISON: CORRELATION IS MADE WITH NOVEMBER 08, 2019 FINDINGS: The lungs are clear but hyperaerated The cardiomediastinal contour is stable IMPRESSION: SIGNIFICANT AIR TRAPPING Antony Villasenor MD 01/05/20 [id number] Thank you for allowing us to participate in the care of your patient.
[2020-01-05 19:31] LABS: PCO2 ARTERIAL,POC 48 mmHg (35-48)
[2020-01-05] MEDS: Albuterol 0.083% 2.5 MG/3 ML Neb Soln NEB ONE (19:57)
== END 2020-01-05 20:36 | disposition short-term general hospital (02) ==
LOC: VM.ED 17:50
DX: J45.902 Unspecified asthma with status asthmaticus (principal); R09.02 Hypoxemia; Z20.828 Contact with and (suspected) exposure to other viral communicable diseases; Z79.899 Other long term (current) drug therapy
CPT/HCPCS: 36600; 71045; 82803; 94640; 96365; 96375; 99284; 99285-25; A9270-GY; J2930; J3475; J7613-GY; J7620-GY; U0002

== ENCOUNTER 2020-11-19 12:29 | Emergency (ER) | payer MEDICAID ==
[2020-11-19] MEDS ORDERED: Take Home: Cephalexin 500 MG Cap, 4 Cap Pack PO ONE (12:46)
--- NOTE | 2020-11-19 20:30 | EDM.PDOC ---
ED HPI GENERAL MEDICAL PROBLEM - General Chief Complaint: Skin Complaint Stated Complaint: INFECTION ON PORT Time Seen by Provider: 11/19/20 12:35 Source of Information: Reports: Patient History Limitations: Reports: No Limitations - History of Present Illness INITIAL COMMENTS - FREE TEXT/NARRATIVE: Pt. presents to ER with complaints of some erythema and discomfort to L and R l ateral neck area. Pt. was recently in the hospital on a ventilator and had lines in her neck (unknown if IJ or EJ) and states that she has developed some redness and discomfort in this area. She states that she has been out of the hospital for a week. Denies any fever or chills. No chest pain or shortness of breath. Denies any headache. Onset Date: 11/13/20 Location: Reports: Neck Neck Pain Score (Numeric/FACES): 4 - Related Data Allergies Allergy/AdvReac Type Severity Reaction Status Date / Time No Known Allergies Allergy Verified 11/19/20 17:10 Home Meds: Home Meds . [No Known Home Meds] 11/19/20 [History] Past Medical History - Past Health History Medical/Surgical History: Denies Medical/Surgical History Respiratory History: Reports: Asthma Psychiatric History: Reports: Addiction Social & Family History - Family History Family Medical History: Unobtainable - Tobacco Use Tobacco Use Status *Q: Never Tobacco User - Caffeine Use Caffeine Use: Reports: Energy Drinks, Soda ED ROS GENERAL - Review of Systems Review Of Systems: Comprehensive ROS is negative, except as noted in HPI. ED EXAM, SKIN/RASH Exam: See Below Exam Limited By: No Limitations General Appearance: Alert, WD/WN, No Apparent Distress Neck: Full Range of Motion, Other (Area of mild erythema surrounding the puncture site on R lateral neck. No abscess or discharge. L side of neck WNL. ) Course - Vital Signs Last Recorded V/S: Last Vital Signs Temp 36.6 C 11/19/20 12:35 Pulse 83 11/19/20 12:35 Resp 16 11/19/20 12:35 BP 118/66 11/19/20 12:35 Pulse Ox 100 11/19/20 12:35 - Orders/Labs/Meds Meds: Medications Discontinued Medications Generic Name Dose Route Start Last Admin Trade Name Freq PRN Reason Stop Dose Admin Cephalexin 2 packet 11/19/20 12:46 11/19/20 12:59 Take Home: Cephalexin 500 Mg Cap, 4 Cap Pack PO 11/19/20 12:47 2 packet ONETIME ONE Administration Departure - Departure Time of Disposition: 13:30 Disposition: Home, Self-Care 01 Clinical Impression: Cellulitis Qualifiers: Site of cellulitis: extremity Site of cellulitis of extremity: upper extremity Laterality: right Qualified Code(s): L03.113 - Cellulitis of right upper limb - Discharge Information Instructions: Cellulitis, Adult Referrals: Thais Peña PA-C [Primary Care Provider] - Forms: ED Department Discharge Additional Instructions: Keflex 500mg 1 cap 4 times a day for 10 days Apply warm pack to R side of neck as tolerated to assist with healing Recheck in clinic in 7-10 days Sepsis Event Note (ED) - Evaluation Sepsis Screening Result: No Definite Risk - Focused Exam Vital Signs: Vital Signs Temp Pulse Resp BP Pulse Ox 11/19/20 12:35 36.6 C 83 16 118/66 100 - Problem List Review Problem List Initiated/Reviewed/Updated: Yes - Assessment/Plan Plan: Keflex 500mg 1 cap 4 times a day for 10 days Apply warm pack to R side of neck as tolerated to assist with healing Recheck in clinic in 7-10 days
== END 2020-11-19 13:00 | disposition home or self-care (01) ==
LOC: VM.ED 12:29
DX: L03.113 Cellulitis of right upper limb (principal)
CPT/HCPCS: 99283; A9270-GY

== ENCOUNTER 2021-10-23 20:59 | Emergency (ER) | payer MEDICAID ==
[2021-10-23] MEDS: Ketorolac 30 MG/ML SDV IM ONE (21:28)
[2021-10-23] MEDS: Morphine 2 MG/ML SYRINGE SUBCUT PRN (21:41)
[2021-10-23 22:05] LABS: CHLORIDE,CL 101 mmol/L (98-107); SODIUM,NA 136 mmol/L (136-145)
[2021-10-23 22:10] LABS: ANION GAP 18.9 mmol/L (5-15); ESTIMATED GFR 72 mL/min (>=60)
[2021-10-23] MEDS: Sodium Chloride 0.9% 1,000 ML IV SCH (22:10)
[2021-10-23] MEDS: Piperacillin/Tazobactam 3.375 GM in Sodium Chloride 0.9% 100 ML IV STA (22:46)
[2021-10-23] MEDS: Sodium Chloride 0.9% 100 ML ONE (23:21)
[2021-10-23 23:33] LABS: CORONAVIRUS COVID-19 NAA NEGATIVE (NEGATIVE); RESPIRATORY SYNCYTIAL VIR NAA NEGATIVE (NEGATIVE)
[2021-10-24] MEDS: Ibuprofen 200 MG Tab PO PRN (00:22)
[2021-10-24] MEDS: fentaNYL 50 MCG/ML SDV IVPUSH ONE (00:23)
[2021-10-24] MEDS ORDERED: Sodium Chloride 0.9% 1,000 ML IV SCH (00:30)
[2021-10-24] MEDS: VANCOmycin 1.5 GM/300 ML 1.5 GM in Premix Bag 1 BAG IV ONE (00:41)
== END 2021-10-24 01:14 | disposition home or self-care (01) ==
LOC: VM.ED 20:59
DX: A41.9 Sepsis, unspecified organism (principal); Z20.822 Contact with and (suspected) exposure to COVID-19
CPT/HCPCS: 0241U; 36000; 36415; 74176; 80053; 83605; 85025; 87040; 87077; 87186; 96365; 96367; 96372; 96375; 99284; 99285-25; A9270-GY; J1885; J2270; J2543; J3010; J3370; J7030

== ENCOUNTER 2022-09-27 11:42 | Inpatient (IN) | payer MEDICAID ==
[2022-09-27] MEDS ORDERED: Sodium Chloride 0.9% 10 ML Syringe FLUSH PRN (11:47)
[2022-09-27] MEDS ORDERED: Albuterol/Ipratropium 3.0-0.5 MG/3 ML Neb Soln NEB ONE ×2 (11:49→13:00)
[2022-09-27] MEDS ORDERED: methylPREDNISolone Sodium Succinate 125 MG/2 ML SDV IVPUSH ONE (11:49)
[2022-09-27] MEDS ORDERED: Magnesium Sulfate/Water 2 GM in Premix Bag 1 BAG IV ONE (11:56)
[2022-09-27] MEDS ORDERED: Magnesium Sulfate (4.06 MEQ/ML) 1 GM/2 ML SDV IM ONE ×2 (12:14→12:15)
[2022-09-27] MEDS ORDERED: methylPREDNISolone Sodium Succinate 125 MG/2 ML SDV IM ONE (12:15)
[2022-09-27] MEDS ORDERED: Albuterol 0.083% 2.5 MG/3 ML Neb Soln NEB ONE ×2 (12:23→12:42)
[2022-09-27 12:31] LABS: BASOPHILS PERCENT AUTO 0.2 % (0.2-1.2); EOSINOPHILS ABSOLUTE AUTO 1.1 x10^3/uL (0.0-0.5); EOSINOPHILS PERCENT AUTO 7.8 % (0.0-4.0); HEMATOCRIT 40.1 % (33.0-47.0); HEMOGLOBIN 14.1 g/dL (12.0-16.0); IMMATURE GRAN ABSOLUTE AUTO 0.01 x10^3/uL (0.00-0.07); LYMPHOCYTES ABSOLUTE AUTO 2.2 x10^3/uL (1.0-4.8); LYMPHOCYTES PERCENT AUTO 15.1 % (25.0-50.0); MEAN CORPUSCULAR HEMOGLOBIN 31.2 pg (26.0-32.0); MEAN CORPUSCULAR HGB CONC 35.2 g/dL (32.0-36.0); MEAN CORPUSCULAR VOLUME 88.7 fL (78.0-93.0); MONOCYTES ABSOLUTE AUTO 0.7 x10^3/uL (0.0-0.8); MONOCYTES PERCENT AUTO 4.8 % (2.0-11.0); NEUTROPHILS ABSOLUTE AUTO 10.4 x10^3/uL (1.8-7.7); PLATELET COUNT,PLT 261 x10^3/uL (130-400); RED BLOOD CELL COUNT 4.52 x10^6/uL (4.00-5.50); WHITE BLOOD CELL COUNT,WBC 14.5 x10^3/uL (4.0-10.0)
[2022-09-27 12:47] LABS: A/G RATIO 0.93; ALANINE AMINOTRANSFERASE,ALT 49 U/L (14-59); ALKALINE PHOSPHATASE 141 U/L (46-116); ANION GAP 14.1 mmol/L (5-15); ASPARTATE AMNIOTRANSFERASE,AST 30 U/L (15-37); BILIRUBIN TOTAL 0.4 mg/dL (0.2-1.0); BLOOD UREA NITROGEN,BUN 14 mg/dL (7-18); CALCIUM 9.3 mg/dL (8.5-10.1); CARBON DIOXIDE,CO2 27 mmol/L (21-32); CHLORIDE,CL 104 mmol/L (98-107); CREATININE 0.8 mg/dL (0.55-1.02); ESTIMATED GFR 104 mL/min (>=60); GLUCOSE RANDOM 137 mg/dL (70-99); POTASSIUM,K 3.1 mmol/L (3.5-5.1); PROTEIN TOTAL,TP 8.3 g/dL (6.4-8.2); SODIUM,NA 142 mmol/L (136-145)
[2022-09-27 12:50] LABS: LACTIC ACID 1.4 mmol/L (0.4-2.0)
[2022-09-27] MEDS ORDERED: Budesonide 0.5 MG/2 ML Neb Susp NEB ONE (13:04)
[2022-09-27] MEDS ORDERED: Albuterol 0.083% 2.5 MG/3 ML Neb Soln NEB PRN (14:44)
[2022-09-27] MEDS ORDERED: predniSONE 20 MG Tab PO SCH (15:00)
[2022-09-27] MEDS: Albuterol/Ipratropium 3.0-0.5 MG/3 ML Neb Soln NEB SCH ×3 (15:19→23:12)
[2022-09-27] MEDS: Budesonide 0.5 MG/2 ML Neb Susp NEB SCH ×2 (18:02→20:00)
[2022-09-27] MEDS: methylPREDNISolone Sodium Succinate 40 MG/1 ML SDV IVPUSH SCH ×2 (18:06→23:08)
[2022-09-27] MEDS ORDERED: LORazepam 2 MG/ML SDV IVPUSH PRN (20:39)
[2022-09-27] MEDS ORDERED: Flumazenil 0.1 MG/ML 5 ML MDV IVPUSH PRN (20:39)
[2022-09-27] MEDS ORDERED: Methadone 5 MG Tab PO SCH ×2 (20:45)
[2022-09-27] MEDS ORDERED: Methadone 5 MG Tab PO ONE (20:46)
[2022-09-28] MEDS: Methadone 5 MG Tab PO SCH ×6 (00:53→20:23)
[2022-09-28] MEDS: Albuterol/Ipratropium 3.0-0.5 MG/3 ML Neb Soln NEB SCH ×6 (03:00→23:16)
[2022-09-28] MEDS: methylPREDNISolone Sodium Succinate 40 MG/1 ML SDV IVPUSH SCH ×2 (04:56→17:33)
[2022-09-28] MEDS ORDERED: Montelukast 10 MG Tab PO PRN (07:06)
[2022-09-28] MEDS ORDERED: Naloxone HCl 4 MG Spray 2 Pack NAS PRN (07:06)
[2022-09-28] MEDS: Budesonide 0.5 MG/2 ML Neb Susp NEB SCH ×4 (08:13→20:28)
[2022-09-28] MEDS: Multivitamin Tab PO SCH (08:55)
[2022-09-28] MEDS: Formoterol/Mometasone 200-5 MCG 13 GM Inhaler INH SCH ×2 (09:18→20:20)
[2022-09-28] MEDS ORDERED: LORazepam 0.5 MG Tab PO PRN (09:29)
[2022-09-28] MEDS ORDERED: LORazepam 2 MG/ML SDV IVPUSH PRN (09:31)
[2022-09-28] MEDS: Potassium Chloride 20 MEQ Tab.ER PO SCH ×2 (12:05→20:26)
[2022-09-29] MEDS: Methadone 5 MG Tab PO SCH ×5 (00:29→17:02)
[2022-09-29] MEDS: Albuterol/Ipratropium 3.0-0.5 MG/3 ML Neb Soln NEB SCH ×4 (03:03→15:36)
[2022-09-29] MEDS: methylPREDNISolone Sodium Succinate 40 MG/1 ML SDV IVPUSH SCH ×2 (05:20→17:33)
[2022-09-29] MEDS: Budesonide 0.5 MG/2 ML Neb Susp NEB SCH ×3 (08:21→17:33)
[2022-09-29] MEDS: Formoterol/Mometasone 200-5 MCG 13 GM Inhaler INH SCH (08:53)
[2022-09-29] MEDS: Multivitamin Tab PO SCH (08:53)
[2022-09-29] MEDS: Potassium Chloride 20 MEQ Tab.ER PO SCH (08:58)
[2022-09-29] MEDS ORDERED: Methadone 5 MG Tab PO ONE (09:08)
[2022-09-29] MEDS ORDERED: Doxycycline Monohydrate 100 MG Cap PO SCH (09:15)
[2022-09-29] MEDS ORDERED: Enoxaparin 40 MG/0.4 ML Syringe SUBCUT SCH ×2 (09:15→12:00)
== END 2022-09-29 17:30 | disposition left against medical advice (07) | DRG 202 ==
LOC: VM.ED 11:42 → VM.MS 13:06 → OBSVTOIN 09-29 09:49
PROVIDERS: ADMIT Internal Medicine; ATTEND Internal Medicine
DX: J45.901 Unspecified asthma with (acute) exacerbation (principal); F11.23 Opioid dependence with withdrawal; E87.6 Hypokalemia; D72.829 Elevated white blood cell count, unspecified; R45.1 Restlessness and agitation; Z86.19 Personal history of other infectious and parasitic diseases
CPT/HCPCS: 36415; 71045 ×2; 80053; 83605; 85025; 93005; 94640 ×13; 94760 ×3; 96372 ×2; 96374; 96376 ×3; 99285; A9270 ×15; G0378 ×4; J2920 ×5; J2930; J3475 ×2; J7512; J3490; J7613-GY; J7620-GY

== ENCOUNTER 2023-02-15 19:18 | Emergency (ER) | payer MEDICAID ==
[2023-02-15] MEDS ORDERED: Take Home: predniSONE 20 MG, 2 Tab Pack PO ONE (19:32)
[2023-02-15] MEDS ORDERED: Albuterol HFA 18 Gm Inhaler INH PRN (19:38)
[2023-02-15] MEDS ORDERED: Take Home: predniSONE 20 MG, 2 Tab Pack ONE (19:51)
== END 2023-02-15 19:55 | disposition home or self-care (01) ==
LOC: VM.ED 19:18
DX: J45.21 Mild intermittent asthma with (acute) exacerbation (principal); Z79.899 Other long term (current) drug therapy
CPT/HCPCS: 99284; A9270-GY; J7512

== ENCOUNTER 2024-03-06 09:14 | Emergency (ER) | payer MEDICAID | END 2024-03-06 10:25 | disposition home or self-care (01) | LOC: VM.ED 09:14 | DX: J02.0 Streptococcal pharyngitis (principal); Z91.048 Other nonmedicinal substance allergy status; Z79.899 Other long term (current) drug therapy | CPT/HCPCS: 87428-QW; 87651-QW; 99283 ==